=== PATIENT | female | born 1945 | race Caucasian/White ===

== ENCOUNTER → 2017-04-01 | Outpatient (CLI) | payer MEDICARE, OTHER ==
--- NOTE | 2017-04-02 08:55 | MM ---
Reason for exam: screening (asymptomatic). Last mammogram was performed 1 year and 1 month ago. History: Benign excisional biopsy of the right breast, 1994. Took estrogen for 15 years beginning at age 40. Took progesterone for 15 years beginning at age 40. Physical Findings: A clinical breast exam by your physician is recommended on an annual basis and results should be correlated with mammographic findings. MG 3D Screening Mammo W/Cad Bilateral CC and MLO view(s) were taken. Prior study comparison: February 20, 2016, bilateral MG 3d screening mammo w/cad. February 17, 2015, bilateral MG screening mammo w CAD. There are scattered fibroglandular densities. Stable benign calcicications. There is no discrete abnormality. No significant changes when compared with prior studies. ASSESSMENT: Benign, BI-RAD 2 RECOMMENDATION: Routine screening mammogram of both breasts in 1 year.
== END | disposition home or self-care (01) ==
LOC: RADMAMWWP 09:20
PROVIDERS: ATTEND Internal Medicine Geriatric Medicine
DX: Z12.31 Encounter for screening mammogram for malignant neoplasm of breast (principal)
CPT/HCPCS: 77063; G0202

== ENCOUNTER → 2017-08-28 | Outpatient (CLI) | payer MEDICARE, OTHER ==
--- NOTE | 2017-08-28 12:14 | US ---
EXAMINATION TYPE: US thyroid st tissue head/neck DATE OF EXAM: 08/28/2017 COMPARISON: US 2016 CLINICAL HISTORY: E04.1 Thyroid Nodule. Thyroid nodule follow up, patient on thyroid meds GLAND SIZE: Right Lobe: 3.0 x 0.8 x 1.0 cm Overall Parenchyma: heterogenous Left Lobe: 2.8 x 0.7 x 0.9 cm Overall Parenchyma: heterogeneous Isthmus Thickness: 0.2 cm NODULES RIGHT: # of nodules measured on right: 1 1. 0.3 X 0.2 x 0.3 cm hypoechoic cystic nodule at the upper pole with well-defined margins. This no dule is wider than tall and shows no intranodular vascularity. Prior size: 0.3 x 0.2 x 0.3 cm LEFT: # of nodules measured on left: 1 1. 0.5 X 0.3 x 0.5 cm hypoechoic cystic nodule at the lower pole with well-defined margins. This no dule is wider than tall and shows no intranodular vascularity. Prior size: 0.4 x 0.2 x 0.5 cm ISTHMUS: # of nodules measured in the isthmus: 0 Bilateral neck scanned, right neck: wnl, left neck: 2.2 x 0.7 x 1.0cm probable lymph node left latera l neck. IMPRESSION: Similar-appearing bilateral thyroid nodules in comparison to the prior exam of 2016. These are favore d to be benign.
== END | disposition home or self-care (01) ==
LOC: RADUSWWP 10:06
PROVIDERS: ATTEND Otolaryngology
DX: E04.2 Nontoxic multinodular goiter (principal)
CPT/HCPCS: 76536

== ENCOUNTER → 2017-09-19 | Outpatient (CLI) | payer MEDICARE, OTHER ==
[2017-09-19 10:21] LABS: Blood Urea Nitrogen 19 mg/dL (7-17)
--- NOTE | 2017-09-19 12:48 | CT ---
EXAMINATION TYPE: CT soft tissue neck w con DATE OF EXAM: 09/19/2017 COMPARISON: NONE HISTORY: Abn US of neck ultrasound 08/28/2017 CT DLP: 642 mGycm CONTRAST: Patient injected with 100 mL of Omnipaque 300. TECHNIQUE: Axial images at 3 mm thick sections. Reconstructed images in the coronal plane and sagitt al plane are reviewed. FINDINGS: Limited CT sections are obtained the lung apices. Some minimal anterior stranding is in th e anterior left upper lobe. CT neck: The torus tubarius and fossa of Rosenmuller are normal. Lpn Cma spaces are normal. Para nasal sinuses and mastoid air cells are clear. Parotid glands appear normal and symmetrical. Submandibular glands, are normal. Parapharyngeal spac es are normal. No suspicious adenopathy is evident. The hypopharynx appears within normal limits. Vocal cord level appear symmetrical. Thyroid as visualized is normal. Subglottic airway is unremarkable. Osseous structures are normal. IMPRESSIONS: 1. Normal CT soft tissue neck
== END | disposition home or self-care (01) ==
LOC: RADCTMAIN 09:46
PROVIDERS: ATTEND Otolaryngology
DX: R59.0 Localized enlarged lymph nodes (principal)
CPT/HCPCS: 82565; 84520; 70491; 36415; Q9967

== ENCOUNTER → 2018-05-01 | Outpatient (CLI) | payer MEDICARE, BC, OTHER ==
--- NOTE | 2018-05-01 13:29 | XR ---
EXAMINATION TYPE: XR chest 2V DATE OF EXAM: 05/01/2018 COMPARISON: 03/01/2014 TECHNIQUE: PA and lateral views submitted. HISTORY: Shortness of breath FINDINGS: The lungs are clear and there is no pneumothorax, pleural effusion, or focal pneumonia. Coarsened i nterstitium noted. Biapical pleural thickening. Hypertrophic and degenerative change of the spine. IMPRESSION: 1. No acute process. Correlate for chronic interstitial lung disease or pneumonitis.
== END | disposition home or self-care (01) ==
LOC: RADXRMAIN 13:00
PROVIDERS: ATTEND Internal Medicine Geriatric Medicine
DX: R05 Cough (principal)
CPT/HCPCS: 71046

== ENCOUNTER → 2018-05-28 | Outpatient (CLI) | payer MEDICARE, OTHER ==
--- NOTE | 2018-05-29 11:13 | MM ---
Reason for exam: screening (asymptomatic). Last mammogram was performed 1 year and 2 months ago. History: Benign excisional biopsy of the right breast, 1994. Took estrogen for 15 years beginning at age 40. Took progesterone for 15 years beginning at age 40. Physical Findings: A clinical breast exam by your physician is recommended on an annual basis and results should be correlated with mammographic findings. MG 3D Screening Mammo W/Cad Bilateral CC and MLO view(s) were taken. Prior study comparison: April 01, 2017, bilateral MG 3d screening mammo w/cad. February 20, 2016, bilateral MG 3d screening mammo w/cad. There are scattered fibroglandular densities. Benign appearing bilateral calcifications. No suspicious abnormality. Post biopsy change on the right. ASSESSMENT: Benign, BI-RAD 2 RECOMMENDATION: Routine screening mammogram of both breasts in 1 year.
== END | disposition home or self-care (01) ==
LOC: RADMAMWWP 09:17
PROVIDERS: ATTEND Internal Medicine Geriatric Medicine
DX: Z12.31 Encounter for screening mammogram for malignant neoplasm of breast (principal)
CPT/HCPCS: 77063; 77067

== ENCOUNTER → 2018-08-27 | Outpatient (CLI) | payer MEDICARE, OTHER ==
--- NOTE | 2018-08-27 18:31 | US ---
EXAMINATION TYPE: US thyroid st tissue head/neck DATE OF EXAM: 08/27/2018 COMPARISON: US 2018 CLINICAL HISTORY: E04.1 Thyroid Nodule. Thyroid nodules GLAND SIZE: Right Lobe: 3.9 x 1.1 x 1.0 cm Overall Parenchyma: heterogenous Left Lobe: 3.5 x 1.0 x 0.7 cm Overall Parenchyma: heterogeneous Isthmus Thickness: 0.2 cm NODULES RIGHT: # of nodules measured on right: 0 Nodule seen on previous ultrasound not seen on today's exam LEFT: # of nodules measured on left: 1 1. 0.5 X 0.3 x 0.5 cm hypoechoic nodule at the lower pole with well-defined margins. This nodule is wider than tall and shows no intranodular vascularity. Prior size: 0.5 x 0.3 x 0.5 cm ISTHMUS: # of nodules measured in the isthmus: 0 Bilateral neck scanned, no evidence of lymphadenopathy. IMPRESSION: The previously noted 3 mm right thyroid nodule is not well-defined on today's examination. The left-s ided 5 mm thyroid nodule remains stable. Again findings are favored to be benign
== END | disposition home or self-care (01) ==
LOC: RADUSWWP 16:10
PROVIDERS: ATTEND Otolaryngology
DX: E04.1 Nontoxic single thyroid nodule (principal)
CPT/HCPCS: 76536

== ENCOUNTER → 2019-09-09 | Outpatient (CLI) | payer MEDICARE, OTHER ==
--- NOTE | 2019-09-09 14:03 | BD ---
EXAMINATION TYPE: Axial Bone Density DATE OF EXAM: 09/09/2019 COMPARISON: 2013 CLINICAL HISTORY: M 81.0 Height: 60 Weight: 173.2 FRAX RISK QUESTIONS: Alcohol (3 or more units per day): no Family History (Parent hip fracture): no Glucocorticoids (More than 3mos): no (Ex: prednisone, prednisolone, methylprednisolone, dexamethasone, and hydrocortisone). History of Fracture in Adulthood: yes Secondary Osteoporosis: 1. Type 1 Diabetes: no 2. Hyperthyroidism: no 3. Menopause before 45: yes 4. Malnutrition: no 5. Chronic liver disease: no Rheumatoid Arthritis: no Current Tobacco Use: no RISK FACTORS HISTORY OF: Surgery to Spine/Hip(right/left)/Wrist (right/left): no Family History of Osteoporosis: no Active: no Diet low in dairy products/other sources of calcium: no Postmenopausal woman: yes Lost more than 2 inches in height since high school: no MEDICATIONS: Neurontin, Topamax, glimepiride , metformin, Plavix, Lasix, losartan, xanax Thyroid Medications: levothyroxine How Long: about 7 years Additional History: EXAM MEASUREMENTS: Bone mineral densitometry was performed using the Snapshot Interactive System. Bone mineral density as measured about the Lumbar spine is: ----- L1-L4(G/cm2): 1.102 T Score Values are as follows: ----- L2: -0.1 ----- L3: -0.4 ----- L4: -0.7 ----- L1-L4: -0.7 Bone mineral density has: increased 3.2 % since study of: 07.07.2013 Bone mineral density about the R hip (g/cm2): 1.038 Bone mineral density about the L hip (g/cm2): 0.982 T Score values are as follows: -----R Neck: 0.0 -----L Neck: -0.4 -----R Total: 0.0 -----L Total: 0.1 Bone mineral density has: decreased -4.5 % since study of: 07.07.2013 IMPRESSION: Normal (Values between +1 and -1 indicate normal bone mass). Consider repeating this study in 5 year s or sooner if there is some new clinical indication. NOTE: T-SCORE=SD OF THE YOUNG ADULT MEAN.
--- NOTE | 2019-09-10 10:19 | MM ---
Reason for exam: screening (asymptomatic). Last mammogram was performed 1 year and 3 months ago. History: Patient history of other cancer. Benign excisional biopsy of the right breast, 1994. Took estrogen for 15 years beginning at age 40. Took progesterone for 15 years beginning at age 40. Physical Findings: A clinical breast exam by your physician is recommended on an annual basis and results should be correlated with mammographic findings. MG 3D Screening Mammo W/Cad Bilateral CC and MLO view(s) were taken. Prior study comparison: May 28, 2018, bilateral MG 3d screening mammo w/cad. April 01, 2017, bilateral MG 3d screening mammo w/cad. There are scattered fibroglandular densities. Benign appearing bilateral calcifications. No significant changes when compared with prior studies. ASSESSMENT: Benign, BI-RAD 2 RECOMMENDATION: Routine screening mammogram of both breasts in 1 year.
== END | disposition home or self-care (01) ==
LOC: RADMAMWWP 09:54
PROVIDERS: ATTEND Internal Medicine Geriatric Medicine
DX: Z12.31 Encounter for screening mammogram for malignant neoplasm of breast (principal); M81.0 Age-related osteoporosis without current pathological fracture
CPT/HCPCS: 77063; 77067; 77080

== ENCOUNTER 2020-05-31 18:08 | Emergency (ER) | payer MEDICARE, OTHER ==
[2020-05-31] MEDS ORDERED: DIPH,PERTUS(ACELL)TETVAC-LF 0.5 ML VIAL IM ONE (18:29)
[2020-05-31] MEDS ORDERED: LIDOCAINE 1%-EPI 1:100,000 20 ML VIAL SQ STA (18:30)
--- NOTE | 2020-05-31 19:10 | CT ---
EXAMINATION TYPE: CT brain wichoine wo con DATE OF EXAM: 05/31/2020 COMPARISON: None available. HISTORY: posterior head laceration post fall CT DLP: 1359 mGycm Automated exposure control for dose reduction was used. TECHNIQUE: CT scan of the head and cervical spine are performed without contrast. FINDINGS: There is no acute intracranial hemorrhage, mass effect, or midline shift identified. The ventricles and sulci are within normal limits in size. The globes are intact and the visualized sin uses are clear. Occipital scalp hematoma is seen. Cervical spine is visualized in its entirety from C1 through upper thoracic levels and demonstrates s atisfactory alignment without evidence of acute fracture or dislocation. Prevertebral soft tissue ap pears within normal limits. The C1-C2 articulation is unremarkable. Multilevel mild cervical spondy losis. Prior left mandibular ORIF noted. IMPRESSION: 1. There is no acute fracture or dislocation evident in the cervical spine. 2. No acute intracranial hemorrhage, mass effect, or midline shift is seen. 3. Occipital scalp hematoma.
--- NOTE | 2020-05-31 19:15 | ED ---
General Adult HPI - General Chief complaint: Fall Stated complaint: fall Time Seen by Provider: 05/31/20 18:20 Source: patient, RN notes reviewed Mode of arrival: wheelchair Limitations: no limitations - History of Present Illness Initial comments: 74-year-old female with a complicated past medical history including Parkinson's disease presents to the emergency room for a chief complaint of headache injury. Patient was in the kitchen when she lost her balance and fell backwards hitting her head on the trashcan. No loss of consciousness. Patient does take Plavix. Patient not up-to-date on tetanus. Patient denies headache at this time. Denies any other injuries. Denies neck or back pain.Patient has no other complaints at this time including shortness of breath, chest pain, abdominal pain, nausea or vomiting, headache, or visual changes. - Related Data Home Medications Medication Instructions Recorded Confirmed ALPRAZolam [Xanax] 0.5 mg PO HS PRN 08/23/14 06/01/16 Betamethasone Dipropionate 1 applic TOPICAL BID 08/23/14 06/01/16 [Diprolene 0.05% Ointment] Clopidogrel [Plavix] 75 mg PO DAILY 08/23/14 06/01/16 Colesevelam [Welchol] 1,250 mg PO BID 08/23/14 06/01/16 Furosemide [Lasix] 20 mg PO DAILY 08/23/14 06/01/16 Ketoconazole 2% Cream [Nizoral] 1 applic TOPICAL BID PRN 08/23/14 06/01/16 Pramipexole Di-HCl [Mirapex] 0.25 mg PO TID 08/23/14 06/01/16 Triamcinolone Acetonide [Nasacort] 10 gram INHALATION BID PRN 08/23/14 06/01/16 Fexofenadine HCl [Mercedes Allergy] 180 mg PO DAILY 09/08/14 06/01/16 Glimepiride [Amaryl] 1 mg PO DAILY 09/08/14 06/01/16 Levothyroxine Sodium [Synthroid] 50 mcg PO DAILY 09/08/14 06/01/16 Ergocalciferol [Vitamin D2 50,000 unit PO Q7D 09/24/14 06/01/16 (DRISDOL)] Famotidine 20 mg PO HS 09/28/14 06/01/16 Pantoprazole Sodium [Protonix] 40 mg PO DAILY 09/28/14 06/01/16 Calcium Carbonate/Vitamin D3 1 each PO DAILY 05/30/16 06/01/16 [Calcium 600-Vit D3 800 Tab] Carbidopa-Levodopa 25-100 mg 1.5 each PO QID 05/30/16 06/01/16 [Sinemet 25-100] Gabapentin [Neurontin] 100 mg PO DAILY 05/30/16 06/01/16 Gabapentin [Neurontin] 600 mg PO HS 05/30/16 06/01/16 lisinopriL [Zestril] 2.5 mg PO DAILY 05/30/16 06/01/16 sitaGLIPtin [Januvia] 100 mg PO DAILY 05/30/16 06/01/16 Allergies Allergy/AdvReac Type Severity Reaction Status Date / Time adhesive Allergy "RED SKIN, Verified 05/31/20 18:13 ITCHING codeine Allergy Nausea & Verified 05/31/20 18:13 Vomiting diazepam [From Valium] Allergy Rash/Hives Verified 05/31/20 18:13 morphine Allergy "DOES NOT Verified 05/31/20 18:13 TAKE THE PAIN AWAY" oxycodone HCl [From Percodan] Allergy Nausea & Verified 05/31/20 18:13 Vomiting oxycodone terephthalate Allergy Nausea & Verified 05/31/20 18:13 [From Percodan] Vomiting Penicillins Allergy Itching Verified 05/31/20 18:13 Sulfa (Sulfonamide Allergy Nausea & Verified 05/31/20 18:13 Antibiotics) Vomiting steroids Allergy Chest Pain Uncoded 05/31/20 18:13 tape Allergy Itching Uncoded 05/31/20 18:13 Review of Systems ROS Statement: Those systems with pertinent positive or pertinent negative responses have been documented in the HPI. ROS Other: All systems not noted in ROS Statement are negative. Past Medical History Past Medical History: CVA/TIA, Diabetes Mellitus, GERD/Reflux, Hyperlipidemia, Hypertension, Musculoskeletal Disorder, Neurologic Disorder, Osteoarthritis (OA), Skin Disorder, Thyroid Disorder Additional Past Medical History / Comment(s): TIA yrs. ago, Parkinson's, CHRONIC BACK PAIN, PSORIASIS, History of Any Multi-Drug Resistant Organisms: None Reported Past Surgical History: Breast Surgery, Cholecystectomy, Hysterectomy, Orthopedic Surgery Additional Past Surgical History / Comment(s): rotator cuff . arthroscopic rt knee. carpal tunnel britney. A&P REPAIR. BREAST BX. RT SIDE. TMJ SURG. Past Anesthesia/Blood Transfusion Reactions: Motion Sickness Past Psychological History: Anxiety Smoking Status: Never smoker Past Alcohol Use History: None Reported Past Drug Use History: None Reported - Past Family History Father Family Medical History: Cancer Additional Family Medical History / Comment(s): FATHER COLON CANCER General Exam Limitations: no limitations General appearance: alert, in no apparent distress Head exam: Present: normocephalic. Absent: atraumatic (Patient is a 5 cm laceration noted to the right posterior parietal scalp.) Eye exam: Present: normal appearance, PERRL, EOMI. Absent: scleral icterus, conjunctival injection, periorbital swelling ENT exam: Present: normal exam, mucous membranes moist Neck exam: Present: normal inspection, full ROM. Absent: tenderness, meningismus, lymphadenopathy Respiratory exam: Present: normal lung sounds bilaterally. Absent: respiratory distress, wheezes, rales, rhonchi, stridor Cardiovascular Exam: Present: regular rate, normal rhythm, normal heart sounds. Absent: systolic murmur, diastolic murmur, rubs, gallop, clicks GI/Abdominal exam: Present: soft, normal bowel sounds. Absent: distended, tenderness, guarding, rebound, rigid Neurological exam: Present: alert, oriented X3, normal gait, other (GCS 15) Course Vital Signs 05/31/20 18:10 Temperature 97.9 F Pulse Rate 94 Respiratory 20 Rate Blood Pressure 141/78 O2 Sat by Pulse 99 Oximetry Procedures - Laceration Laceration #1 Consent Obtained: verbal consent Indication: laceration Site: scalp Size (cm): 5 Description: linear Depth: simple, single layer Anesthetic Used: lidocaine 1%, with epi Anesthesia Technique: local infiltration Amount (mls): 5 Pre-repair: wound explored, irrigated extensively, deep structures intact Type of Sutures: other (Johann) Number of Sutures: 8 Technique: simple, interrupted Patient Tolerated Procedure: well, no complications Medical Decision Making - Medical Decision Making CT cervical spine shows no acute fracture or dislocation evident. CT brain shows no acute intracranial hemorrhage, mass effect, or midline shift. CT brain and C-spine shows no acute fracture or dislocation evident. No acute intracranial hemorrhage mass effect or midline shift. Patient does have occipital scalp hematoma. 5 centimeter laceration was stapled with 8 johann. Patient will follow up with primary care. I discussed return parameters and care instructions. She will return here for staple removal Disposition Clinical Impression: Head injury, Laceration Disposition: HOME SELF-CARE Condition: Good Instructions (If sedation given, give patient instructions): Head Injury (ED), Staple Care (ED) Additional Instructions: Please keep the area clean and monitor for signs of infection. If these occur return to the emergency room. Otherwise return in 10-14 days for staple removal. Follow-up with your doctor for recheck in one to 2 days. Is patient prescribed a controlled substance at d/c from ED?: No Referrals: Byron Banuelos MD [Primary Care Provider] - 1-2 days Time of Disposition: 19:58
[2020-05-31 20:11] VITALS: BP 121/69; PULSE 91; RESP 16; TEMP 98.5
== END 2020-05-31 20:11 | disposition home or self-care (01) ==
LOC: EC 18:08
DX: S09.90XA Unspecified injury of head, initial encounter (principal); G20 Parkinson's disease; S01.01XA Laceration without foreign body of scalp, initial encounter; E11.9 Type 2 diabetes mellitus without complications; E78.5 Hyperlipidemia, unspecified; K21.9 Gastro-esophageal reflux disease without esophagitis; I10 Essential (primary) hypertension; M19.90 Unspecified osteoarthritis, unspecified site; E07.9 Disorder of thyroid, unspecified; G89.29 Other chronic pain; M54.9 Dorsalgia, unspecified; F41.9 Anxiety disorder, unspecified; Z79.02 Long term (current) use of antithrombotics/antiplatelets; Z79.84 Long term (current) use of oral hypoglycemic drugs; Z79.899 Other long term (current) drug therapy; Z91.048 Other nonmedicinal substance allergy status; Z88.8 Allergy status to other drugs, medicaments and biological substances; Z88.2 Allergy status to sulfonamides; Z88.5 Allergy status to narcotic agent; W01.10XA Fall on same level from slipping, tripping and stumbling with subsequent striking against unspecified object, initial encounter; Y93.89 Activity, other specified; Y92.000 Kitchen of unspecified non-institutional (private) residence as the place of occurrence of the external cause
CPT/HCPCS: 12002; 70450; 72125; 90471; 90715; 99283

== ENCOUNTER → 2020-08-24 | Outpatient (CLI) | payer MEDICARE, OTHER ==
--- NOTE | 2020-08-24 14:39 | US ---
EXAMINATION TYPE: US thyroid st tissue head/neck DATE OF EXAM: 08/24/2020 COMPARISON: 08/27/2018 CLINICAL HISTORY: 75-year-old female D34 Benign neoplasm of thyroid gland. TECHNIQUE: Multiple sonographic images of the thyroid gland are obtained. FINDINGS: GLAND SIZE: Right Lobe: 2.9 x 0.9 x 1.2 cm Overall Parenchyma: heterogenous Left Lobe: 1.9 x 0.7 x 0.7cm cm Overall Parenchyma: heterogeneous Isthmus Thickness: 0.2 cm NODULES RIGHT: # of nodules measured on right: 0 LEFT: # of nodules measured on left: 0 ISTHMUS: # of nodules measured in the isthmus: 0 Bilateral neck scanned, no evidence of lymphadenopathy. Solderer Torch notes: Small ill defined thyroid. Technically difficult study, patient unable to well pos ition herself for test. Patient unable to move chin up for examiner to scan thyroid. IMPRESSION: Small heterogeneous gland may reflect chronic hypothyroidism. Clinically correlate. No discrete nodul e seen. The previous 5 mm left lower pole nodule is no longer identified.
== END | disposition home or self-care (01) ==
LOC: RADUSWWP 13:22
PROVIDERS: ATTEND Internal Medicine Geriatric Medicine
DX: D34 Benign neoplasm of thyroid gland (principal)
CPT/HCPCS: 76536

== ENCOUNTER → 2020-09-23 | Outpatient (CLI) | payer MEDICARE, OTHER ==
--- NOTE | 2020-09-27 13:28 | MM ---
Reason for exam: screening (asymptomatic). Last mammogram was performed 1 year ago. History: Patient history of other cancer. Benign excisional biopsy of the right breast, 1994. Took estrogen for 15 years beginning at age 40. Took progesterone for 15 years beginning at age 40. Physical Findings: A clinical breast exam by your physician is recommended on an annual basis and results should be correlated with mammographic findings. MG 3D Screening Mammo W/Cad Bilateral CC and MLO view(s) were taken. Prior study comparison: September 09, 2019, bilateral MG 3d screening mammo w/cad. May 28, 2018, bilateral MG 3d screening mammo w/cad. There are scattered fibroglandular densities. There is chronic nodularity in the right breast. Benign vascular and oil cyst calcifications. No significant changes when compared with prior studies. ASSESSMENT: Benign, BI-RAD 2 RECOMMENDATION: Routine screening mammogram of both breasts in 1 year.
== END | disposition home or self-care (01) ==
LOC: RADMAMWWP 13:36
PROVIDERS: ATTEND Internal Medicine Geriatric Medicine
DX: Z12.31 Encounter for screening mammogram for malignant neoplasm of breast (principal)
CPT/HCPCS: 77063; 77067

== ENCOUNTER 2020-10-05 11:44 | Emergency (ER) | payer MEDICARE, OTHER ==
--- NOTE | 2020-10-05 12:24 | ED ---
General Adult HPI - General Chief complaint: Fall Stated complaint: Fall Time Seen by Provider: 10/05/20 12:10 Source: patient, family Mode of arrival: ambulatory Limitations: no limitations - History of Present Illness Initial comments: Dictation was produced using [employer] dictation software. please excuse any grammatical, word or spelling errors. This patient was cared for during a federal and state declared state of emergency secondary to Covid 19 Chief Complaint: 75-year-old female presents with head injury History of Present Illness: Patient is a 75-year-old female presents with head injury. Patient was waiting herself she was standing on a scale when she struck misstep off. The scale dipped over and patient fell backwards. She struck her head on the bathtub. Patient presents mild pain there. She has no neck pain. Patient Plavix. Denies any neck pain. No other complaints at this time. The ROS documented in this emergency department record has been reviewed and confirmed by me. Those systems with pertinent positive or negative responses have been documented in the HPI. All other systems are other negative and/or noncontributory. PHYSICAL EXAM: General Impression: Alert and oriented x3, not in acute distress HEENT: 2 x 2 centimeter hematoma over left occiput, extra-ocular movements intact, pupils equal and reactive to light bilaterally, mucous membranes moist. Cardiovascular: Heart regular rate and rhythm Chest: Able to complete full sentences, no retractions, no tachypnea Abdomen: abdomen soft, non-tender, non-distended, no organomegaly Musculoskeletal: Pulses present and equal in all extremities, no peripheral edema Motor: no focal deficits noted Neurological: CN II-XII grossly intact, no focal motor or sensory deficits noted Skin: Intact with no visualized rashes Psych: Normal affect and mood ED course: 75-year-old female presents with head injury. Vital signs upon arrival are within acceptable limits. Computed tomography scan of the head and C-spine was obtained showing no acute processes. Patient be discharged. - Related Data Home Medications Medication Instructions Recorded Confirmed ALPRAZolam [Xanax] 0.5 mg PO HS PRN 08/23/14 06/01/16 Betamethasone Dipropionate 1 applic TOPICAL BID 08/23/14 06/01/16 [Diprolene 0.05% Ointment] Clopidogrel [Plavix] 75 mg PO DAILY 08/23/14 06/01/16 Colesevelam [Welchol] 1,250 mg PO BID 08/23/14 06/01/16 Furosemide [Lasix] 20 mg PO DAILY 08/23/14 06/01/16 Ketoconazole 2% Cream [Nizoral] 1 applic TOPICAL BID PRN 08/23/14 06/01/16 Pramipexole Di-HCl [Mirapex] 0.25 mg PO TID 08/23/14 06/01/16 Triamcinolone Acetonide [Nasacort] 10 gram INHALATION BID PRN 08/23/14 06/01/16 Fexofenadine HCl [Mercedes Allergy] 180 mg PO DAILY 09/08/14 06/01/16 Glimepiride [Amaryl] 1 mg PO DAILY 09/08/14 06/01/16 Levothyroxine Sodium [Synthroid] 50 mcg PO DAILY 09/08/14 06/01/16 Ergocalciferol [Vitamin D2 50,000 unit PO Q7D 09/24/14 06/01/16 (DRISDOL)] Famotidine 20 mg PO HS 09/28/14 06/01/16 Pantoprazole Sodium [Protonix] 40 mg PO DAILY 09/28/14 06/01/16 Calcium Carbonate/Vitamin D3 1 each PO DAILY 05/30/16 06/01/16 [Calcium 600-Vit D3 800 Tab] Carbidopa-Levodopa 25-100 mg 1.5 each PO QID 05/30/16 06/01/16 [Sinemet 25-100] Gabapentin [Neurontin] 100 mg PO DAILY 05/30/16 06/01/16 Gabapentin [Neurontin] 600 mg PO HS 05/30/16 06/01/16 lisinopriL [Zestril] 2.5 mg PO DAILY 05/30/16 06/01/16 sitaGLIPtin [Januvia] 100 mg PO DAILY 05/30/16 06/01/16 Allergies Allergy/AdvReac Type Severity Reaction Status Date / Time adhesive Allergy "RED SKIN, Verified 10/05/20 12:03 ITCHING codeine Allergy Nausea & Verified 10/05/20 12:03 Vomiting diazepam [From Valium] Allergy Rash/Hives Verified 10/05/20 12:03 morphine Allergy "DOES NOT Verified 10/05/20 12:03 TAKE THE PAIN AWAY" oxycodone HCl [From Percodan] Allergy Nausea & Verified 10/05/20 12:03 Vomiting oxycodone terephthalate Allergy Nausea & Verified 10/05/20 12:03 [From Percodan] Vomiting Penicillins Allergy Itching Verified 10/05/20 12:03 Sulfa (Sulfonamide Allergy Nausea & Verified 10/05/20 12:03 Antibiotics) Vomiting steroids Allergy Chest Pain Uncoded 05/31/20 18:13 tape Allergy Itching Uncoded 05/31/20 18:13 Review of Systems ROS Statement: Those systems with pertinent positive or pertinent negative responses have been documented in the HPI. ROS Other: All systems not noted in ROS Statement are negative. Past Medical History Past Medical History: CVA/TIA, Diabetes Mellitus, GERD/Reflux, Hyperlipidemia, Hypertension, Musculoskeletal Disorder, Neurologic Disorder, Osteoarthritis (OA), Skin Disorder, Thyroid Disorder Additional Past Medical History / Comment(s): TIA yrs. ago, Parkinson's, CHRONIC BACK PAIN, PSORIASIS, History of Any Multi-Drug Resistant Organisms: None Reported Past Surgical History: Breast Surgery, Cholecystectomy, Hysterectomy, Orthopedic Surgery Additional Past Surgical History / Comment(s): rotator cuff . arthroscopic rt knee. carpal tunnel britney. A&P REPAIR. BREAST BX. RT SIDE. TMJ SURG. Past Anesthesia/Blood Transfusion Reactions: Motion Sickness Past Psychological History: Anxiety Smoking Status: Never smoker Past Alcohol Use History: None Reported Past Drug Use History: None Reported - Past Family History Father Family Medical History: Cancer Additional Family Medical History / Comment(s): FATHER COLON CANCER General Exam Limitations: no limitations Course Vital Signs 10/05/20 11:59 Temperature 97.7 F Pulse Rate 92 Respiratory 18 Rate Blood Pressure 93/60 O2 Sat by Pulse 95 Oximetry Disposition Clinical Impression: Head contusion Disposition: HOME SELF-CARE Condition: Good Instructions (If sedation given, give patient instructions): Fall Prevention for Older Adults (ED) Is patient prescribed a controlled substance at d/c from ED?: No Referrals: Byron Banuelos MD [Primary Care Provider] - 1-2 days Time of Disposition: 13:09
--- NOTE | 2020-10-05 12:59 | CT ---
EXAMINATION TYPE: CT brain vianca wo con DATE OF EXAM: 10/05/2020 COMPARISON: 05/31/2020 HISTORY: 75-year-old female with pain after Fall and posterior injury CT DLP: 1435.9 mGycm Automated exposure control for dose reduction was used. Technique: Examination of the head was done in axial plane without intravenous contrast. Coronal and sagittal reconstructions performed. CT of the cervical spine was obtained in axial plane without intravenous injection of contrast mater ial. Coronal and sagittal reformatted images were obtained from the axial views for evaluation of f ractures, spinal alignment and canal. FINDINGS: Head: There is no evidence of acute intracranial hemorrhage, acute ischemic changes, mass, mass-effect, or extra-axial fluid collection. There is no effacement of cerebral sulci or basal subarachnoid cister ns. There is no hydrocephalus. There is no midline shift. Lovell-white matter distinction is preserv ed. Old lacunar infarct left basal ganglia The scattered calcifications within the carotid siphons. Left posterior parietal scalp contusion. No underlying calvarial fracture. Some hyperostosis interna compatible with normal variation of the calvarium. Leftward nasal septal deviation. Visualized paranasal sinuses are clear. Mastoid air cells are well p neumatized. Orbits and globes are intact. Cervical spine: No craniocervical junction and probably, predental space widening, or prevertebral soft tissue swelli ng. Degenerative changes of the C1 dens articulation. Scattered hypertrophic facet and uncovertebral joint arthropathy. Unchanged degenerative grade 1 anterolisthesis C2-C3, C3-C4, C4-C5, and C7-T1. Reversal of the normal cervical lordosis. No acute fracture of the cervical spine. Variable mild neuroforaminal narrowing Interstitial changes in the visualized upper lungs appear largely, unchanged from prior exam. Sagittal and coronal reformatted images confirm above findings. COMBINED IMPRESSION: 1. Left posterior scalp contusion. No underlying calvarial fracture or acute intracranial abnormality seen. 2. No acute fracture of the cervical spine. Degenerative grade 1 anterolistheses C2-C3, C3-C4, C4-C5, and C7-T1 remain unchanged.
[2020-10-05 14:14] VITALS: BP 112/65; PULSE 85; RESP 20; TEMP 98.6
== END 2020-10-05 13:20 | disposition home or self-care (01) ==
LOC: EC 11:44
DX: S00.93XA Contusion of unspecified part of head, initial encounter (principal); E11.9 Type 2 diabetes mellitus without complications; E78.5 Hyperlipidemia, unspecified; F41.9 Anxiety disorder, unspecified; G20 Parkinson's disease; I10 Essential (primary) hypertension; K21.9 Gastro-esophageal reflux disease without esophagitis; Z79.02 Long term (current) use of antithrombotics/antiplatelets; Z79.899 Other long term (current) drug therapy; Z79.84 Long term (current) use of oral hypoglycemic drugs; Z91.040 Latex allergy status; Z88.5 Allergy status to narcotic agent; Z88.0 Allergy status to penicillin; Z88.2 Allergy status to sulfonamides; Z91.048 Other nonmedicinal substance allergy status; Z86.73 Personal history of transient ischemic attack (TIA), and cerebral infarction without residual deficits; W22.8XXA Striking against or struck by other objects, initial encounter
CPT/HCPCS: 70450; 72125; 99283

== ENCOUNTER 2020-10-15 10:45 | Emergency (ER) | payer MEDICARE, OTHER ==
[2020-10-15 10:50] VITALS: RESP 18
--- NOTE | 2020-10-15 11:34 | ED ---
Fall HPI - General Chief Complaint: Fall Stated Complaint: fall, facial injury Time Seen by Provider: 10/15/20 10:53 Source: patient, family Mode of arrival: wheelchair - History of Present Illness Initial Comments: 75-year-old female with history of Parkinson's, chronic back pain and frequent falls presents to emergency departments chief complaint of a fall. Patient reports she was walking to the laundry room carrying a basket when she lost her footing and went down to the ground with face first. Patient reports now she developed ecchymosis on her forehead in the left eye. Patient is currently on Plavix. Patient denies any loss consciousness at the time of incident. She denies any dizziness, lightheadedness, blurry vision, one-sided weakness or paresthesias. She does report a headache near the site of ecchymosis. She denies any neck pain. - Related Data Home Medications Medication Instructions Recorded Confirmed Clopidogrel [Plavix] 75 mg PO DAILY 08/23/14 10/15/20 Furosemide [Lasix] 20 mg PO DAILY 08/23/14 10/15/20 Glimepiride [Amaryl] 2 mg PO BID 09/08/14 10/15/20 Levothyroxine Sodium [Synthroid] 50 mcg PO HS 09/08/14 10/15/20 Famotidine 20 mg PO HS 09/28/14 10/15/20 Carbidopa-Levodopa 25-100 mg 1.5 tab PO TID 05/30/16 10/15/20 [Sinemet 25-100] Acetaminophen/Caffeine [Excedrin 2 tab PO Q12H PRN 10/15/20 10/15/20 Tension Headache Cplt] Celecoxib [CeleBREX] 200 mg PO HS 10/15/20 10/15/20 Cyclobenzaprine [Flexeril] 10 mg PO HS 10/15/20 10/15/20 Dulaglutide [Trulicity] 1.5 mg SQ WE 10/15/20 10/15/20 Lidocaine 5% Patch [Lidoderm] 1 patch TOPICAL DAILY PRN 10/15/20 10/15/20 Mirabegron [Myrbetriq] 50 mg PO DAILY@1200 10/15/20 10/15/20 Olmesartan [Benicar] 10 mg PO DAILY 10/15/20 10/15/20 Pregabalin [Lyrica] 100 mg PO BID@1200,2100 10/15/20 10/15/20 Rosuvastatin [Crestor] 10 mg PO DAILY 10/15/20 10/15/20 metFORMIN HCL [Glucophage] 500 mg PO BID 10/15/20 10/15/20 predniSONE 2.5 mg PO DAILY 10/15/20 10/15/20 traZODone HCL 100 mg PO HS 10/15/20 10/15/20 Allergies Allergy/AdvReac Type Severity Reaction Status Date / Time adhesive Allergy "RED SKIN, Verified 10/15/20 12:05 ITCHING codeine Allergy Nausea & Verified 10/15/20 12:05 Vomiting diazepam [From Valium] Allergy Rash/Hives Verified 10/15/20 12:05 morphine Allergy "DOES NOT Verified 10/15/20 12:05 TAKE THE PAIN AWAY" oxycodone HCl [From Percodan] Allergy Nausea & Verified 10/15/20 12:05 Vomiting oxycodone terephthalate Allergy Nausea & Verified 10/15/20 12:05 [From Percodan] Vomiting Penicillins Allergy Itching Verified 10/15/20 12:05 Sulfa (Sulfonamide Allergy Nausea & Verified 10/15/20 12:05 Antibiotics) Vomiting steroids Allergy Chest Pain Uncoded 05/31/20 18:13 tape Allergy Itching Uncoded 05/31/20 18:13 Review of Systems ROS Statement: Those systems with pertinent positive or pertinent negative responses have been documented in the HPI. ROS Other: All systems not noted in ROS Statement are negative. Past Medical History Past Medical History: CVA/TIA, Diabetes Mellitus, GERD/Reflux, Hyperlipidemia, Hypertension, Musculoskeletal Disorder, Neurologic Disorder, Osteoarthritis (OA), Skin Disorder, Thyroid Disorder Additional Past Medical History / Comment(s): TIA yrs. ago, Parkinson's, CHRONIC BACK PAIN, PSORIASIS, History of Any Multi-Drug Resistant Organisms: None Reported Past Surgical History: Breast Surgery, Cholecystectomy, Hysterectomy, Orthopedic Surgery Additional Past Surgical History / Comment(s): rotator cuff . arthroscopic rt knee. carpal tunnel britney. A&P REPAIR. BREAST BX. RT SIDE. TMJ SURG. Past Anesthesia/Blood Transfusion Reactions: Motion Sickness Past Psychological History: Anxiety Smoking Status: Never smoker Past Alcohol Use History: None Reported Past Drug Use History: None Reported - Past Family History Father Family Medical History: Cancer Additional Family Medical History / Comment(s): FATHER COLON CANCER General Exam Limitations: no limitations General appearance: alert, in no apparent distress Head exam: Present: normocephalic, normal inspection. Absent: atraumatic (There is bruising on the left side of the forehead along some periorbital ecchymosis), other (Negative Kamara sign, raccoon eyes, hemotympanum.) Eye exam: Present: normal appearance, PERRL, EOMI Pupils: Present: normal accommodation ENT exam: Present: normal exam, normal oropharynx (No signs of septal hematoma), mucous membranes moist, TM's normal bilaterally, normal external ear exam Neck exam: Present: normal inspection, full ROM. Absent: tenderness Respiratory exam: Present: normal lung sounds bilaterally. Absent: respiratory distress Cardiovascular Exam: Present: regular rate, normal rhythm, normal heart sounds Extremities exam: Present: normal inspection, full ROM, normal capillary refill. Absent: tenderness Back exam: Present: normal inspection, full ROM. Absent: tenderness, CVA tenderness (R), CVA tenderness (L) Neurological exam: Present: alert, oriented X3, normal gait Psychiatric exam: Present: normal affect, normal mood Skin exam: Present: warm, dry, intact, normal color Course Vital Signs 10/15/20 10:47 Temperature 98 F Pulse Rate 91 Respiratory 18 Rate Blood Pressure 114/74 O2 Sat by Pulse 96 Oximetry Medical Decision Making - Medical Decision Making 75-year-old female presents to emergency Department with a chief complaint of a fall. On physical examination, she has left periorbital ecchymosis along with a hematoma on the left-sided forehead. Patient is otherwise neurovascularly intact. She does have history of Parkinson's and frequent falls. CT of the brain and C-spine shows no acute fractures, dislocations, intracranial hemorrhage. Facial CT reveals a minimally displaced nasal bone fracture. Patient vised to follow-up with an ENT specialist. She was offered analgesia, she declined. Case discussed with Dr. Youssef. Disposition Clinical Impression: Fall, Head injury, Nasal bone fracture Disposition: HOME SELF-CARE Condition: Stable Instructions (If sedation given, give patient instructions): Nasal Fracture (ED), Fall Prevention (ED) Additional Instructions: Follow-up with an ENT specialist. Return to emergency department if symptoms worsen. Is patient prescribed a controlled substance at d/c from ED?: No Referrals: Byron Banuelos MD [Primary Care Provider] - 1-2 days Time of Disposition: 12:16
--- NOTE | 2020-10-15 12:00 | CT ---
EXAMINATION TYPE: CT brain cspine wo con DATE OF EXAM: 10/15/2020 COMPARISON: CT 10/05/2020 HISTORY: perinasal and periorbital contusion post fall CT DLP: 1147.2 mGycm Automated exposure control for dose reduction was used. TECHNIQUE: CT scan of the head and cervical spine are performed without contrast. FINDINGS: There is no acute intracranial hemorrhage, mass effect, or midline shift identified. The ventricles and sulci are within normal limits in size. The globes are intact and the visualized sin uses are clear. There are cerebral vascular calcifications. Frontal cephalohematoma present within th e scalp is a new finding, the posterior occipital scalp region also shows a focus of increased attenu ation likely due to cephalohematoma which was seen on prior exam. Periventricular white matter shows patchy low attenuation, there is cortical atrophy. Calvarium shows no fracture Cervical spine is visualized in its entirety from C1 through upper thoracic levels and demonstrates near-anatomic alignment, stable without evidence of acute fracture or dislocation. Prevertebral soft tissue appears within normal limits. The C1-C2 articulation is unremarkable. Arthropathy change pre sent at the temporomandibular joints. Stable degenerative changes. IMPRESSION: 1. There is no acute fracture or dislocation evident in the cervical spine. 2. No acute intracranial hemorrhage, mass effect, or midline shift is seen.
--- NOTE | 2020-10-15 12:10 | CT ---
EXAMINATION TYPE: CT facial bones wo con DATE OF EXAM: 10/15/2020 COMPARISON: CT brain same date HISTORY: perinasal and periorbital contusion post fall CT DLP: 820.6 mGycm Automated exposure control for dose reduction was used. TECHNIQUE: CT scan of the sinuses is performed without contrast, axial images are obtained, coronal r eformatted images are also reviewed. FINDINGS: Soft tissue swelling noted to the nose, there is a fracture to the nasal bone on the right with some minimal displacement. Lucency is present within the soft tissues, frontal cephalohematoma i s again noted. Orbits are intact. No air-fluid levels in the paranasal sinuses to suggest acute hemor rhage. Focal sclerotic focus in the frontal ethmoidal region likely represents osteoma measuring 6 mm . There is no erosion of the scutum. Auditory ossicles show symmetric appearance. No thickening of th e tympanic membranes. Temporomandibular joints show marked arthropathy, there is a focal lucency pres ent at the articulation of the mandibular condyle in the left with the base of the skull at the level of the anterior aspect of the inferior margin of the middle cranial fossa which appears chronic. IMPRESSION: Minimally displaced distal nasal bone fracture, soft tissue injury. Temporal mandibular j oint arthropathy change as described with lucency at the joint potentially communicating with the mid dle cranial fossa.
[2020-10-15 12:55] VITALS: BP 122/71; PULSE 71; TEMP 98.2
== END 2020-10-15 12:55 | disposition home or self-care (01) ==
LOC: EC 10:45
DX: S02.2XXA Fracture of nasal bones, initial encounter for closed fracture (principal); S09.90XA Unspecified injury of head, initial encounter; M19.90 Unspecified osteoarthritis, unspecified site; K21.9 Gastro-esophageal reflux disease without esophagitis; I10 Essential (primary) hypertension; G20 Parkinson's disease; F41.9 Anxiety disorder, unspecified; E07.9 Disorder of thyroid, unspecified; E78.5 Hyperlipidemia, unspecified; E11.9 Type 2 diabetes mellitus without complications; Z79.02 Long term (current) use of antithrombotics/antiplatelets; Z79.1 Long term (current) use of non-steroidal anti-inflammatories (NSAID); Z79.52 Long term (current) use of systemic steroids; Z79.84 Long term (current) use of oral hypoglycemic drugs; Z79.899 Other long term (current) drug therapy; Z86.73 Personal history of transient ischemic attack (TIA), and cerebral infarction without residual deficits; Z88.0 Allergy status to penicillin; Z88.2 Allergy status to sulfonamides; Z88.5 Allergy status to narcotic agent; W19.XXXA Unspecified fall, initial encounter; Y93.01 Activity, walking, marching and hiking
CPT/HCPCS: 70450; 70486; 72125

== ENCOUNTER → 2022-01-16 | Outpatient (CLI) | payer MEDICARE, OTHER ==
--- NOTE | 2022-01-17 09:09 | MM ---
Reason for Exam: Screening (asymptomatic). Last mammogram was performed 1 year(s) and 4 month(s) ago. Patient History: Menarche at age 13. First Full-Term at age 22. Left ovary removed at age 38. Right ovary removed at age 34. Hysterectomy at age 34. Other cancer. Estrogen for 15 years from age 40 until age 55. Progesterone for 15 years from age 40 until age 55. 1994, Benign Excisional Biopsy on the right side. Risk Values: Lisbeth 5 year model risk: 1.9%. NCI Lifetime model risk: 3.8%. Prior Study Comparison: 05/28/2018 Bilateral Screening Mammogram, [facility]. 09/09/2019 Bilateral Screening Mammogram, [facility]. 09/23/2020 Bilateral Screening Mammogram, [facility]. Tissue Density: There are scattered fibroglandular densities. Findings: Analyzed By CAD. There is no suspicious group of microcalcifications or new suspicious mass in either breast. Benign calcifications noted. Overall Assessment: Benign, BI-RAD 2 Management: Screening Mammogram of both breasts in 1 year. A clinical breast exam by your physician is recommended on an annual basis and results should be correlated with mammographic findings. Electronically signed and approved by: Chris Paul M.D. Radiologis
== END | disposition home or self-care (01) ==
LOC: RADMAMWWP 06:46
PROVIDERS: ATTEND Internal Medicine Geriatric Medicine
DX: Z12.31 Encounter for screening mammogram for malignant neoplasm of breast (principal)
CPT/HCPCS: 77063; 77067

== ENCOUNTER 2022-02-13 14:28 | Emergency (ER) | payer MEDICARE, OTHER ==
[2022-02-13 14:35] VITALS: TEMP 98.6
[2022-02-13] MEDS ORDERED: SODIUM CHLORIDE 0.9% 1,000 ML IV STA (14:50)
[2022-02-13 15:34] LABS: Basophils # (A) 0.1 k/uL (0-0.2); Basophils % (A) 1 %; Eosinophils # (A) 0.2 k/uL (0-0.7); Eosinophils % (A) 2 %; HCT 40.4 % (34.0-46.0); Lymphocytes % (A) 23 %; MCH 28.6 pg (25.0-35.0); MCHC 32.3 g/dL (31.0-37.0); MCV 88.6 fL (80.0-100.0); Mean Platelet Volume 7.5; Monocytes # (A) 0.5 k/uL (0-1.0); Monocytes % (A) 6 %; Neutrophils # (A) 5.8 k/uL (1.3-7.7); Neutrophils % (A) 67 %; Platelet Count 254 k/uL (150-450); RBC 4.56 m/uL (3.80-5.40); RDW 13.8 % (11.5-15.5); WBC 8.7 k/uL (3.8-10.6)
[2022-02-13 15:45] LABS: ALT 24 U/L (4-34); AST 37 U/L (14-36); African American GFR (CKD) >90 (>60 ml/min/1.73 sqM); Albumin 4.4 g/dL (3.5-5.0); Alkaline Phosphatase 70 U/L (38-126); Anion Gap 9 mmol/L; Blood Urea Nitrogen 24 mg/dL (7-17); Calcium 9.7 mg/dL (8.4-10.2); Carbon Dioxide 26 mmol/L (22-30); Chloride 102 mmol/L (98-107); Glucose 121 mg/dL (74-99); Magnesium 1.9 mg/dL (1.6-2.3); Non-African American GFR(CKD) 85 (>60 ml/min/1.73 sqM); Phosphorus 3.5 mg/dL (2.5-4.5); Potassium 3.8 mmol/L (3.5-5.1); Sodium 137 mmol/L (137-145); Total Bilirubin 0.9 mg/dL (0.2-1.3); Total Protein 7.4 g/dL (6.3-8.2)
--- NOTE | 2022-02-13 15:51 | XR ---
EXAMINATION TYPE: XR chest 2V DATE OF EXAM: 02/13/2022 COMPARISON: Chest x-ray 05/01/2018 HISTORY: Weakness, pain TECHNIQUE: Frontal and lateral views of the chest are obtained. FINDINGS: Interstitium is increased. Lung volumes are low. No evident pneumothorax or pleural effusi on. Heart and mediastinal silhouette likely stable accounting for patient rotation. Arthropathy again noted within the shoulders. There is thoracic spondylosis. IMPRESSION: There is likely underlying chronic interstitial lung disease.
[2022-02-13 15:58] LABS: Partial Thromboplastin Time 22.6 sec (22.0-30.0); Prothrombin Time 10.7 sec (9.0-12.0)
[2022-02-13 16:50] LABS: Appearance,Urine Clear (Clear); Bacteria,Urine Occasional /hpf; Bilirubin,Urine Negative (Negative); Blood,Urine Negative (Negative); Color,Urine Yellow; Glucose,Urine (UA) 4+ (Negative); Hyaline Casts,Urine 1 /lpf (0-2); Ketones,Urine 1+ (Negative); Leukocyte Esterase,Urine Large (Negative); Mucus,Urine Rare /hpf; Nitrite,Urine Negative (Negative); PH, Urine 5.5 (5.0-8.0); Protein,Urine Trace (Negative); RBC,Urine 19 /hpf (0-5); Specific Gravity,Urine 1.038 (1.001-1.035); Squamous Epithelial Cell,Urine 2 /hpf (0-4); Urobilinogen,Urine <2.0 mg/dL (<2.0); WBC,Urine 24 /hpf (0-5)
[2022-02-13 18:46] VITALS: BP 101/68; PULSE 90; RESP 16
--- NOTE | 2022-02-13 19:01 | ED ---
Weakness HPI - General Chief complaint: Weakness Stated complaint: Weakness Time Seen by Provider: 02/13/22 14:37 Source: patient, family Mode of arrival: ambulatory Limitations: no limitations - History of Present Illness Initial comments: Patient complains of weakness and malaise. Her symptoms are gone worse for 48 hours. She has no focal deficits. She has no paresthesias. She has no lightheadedness. She has no dizziness. She has no nausea or vomiting. He has taken no medicine to help with her symptoms. She denies any sick contacts. She denies any recent travel. - Related Data Home Medications Medication Instructions Recorded Confirmed Clopidogrel [Plavix] 75 mg PO DIRECTED 08/23/14 02/13/22 Furosemide [Lasix] 20 mg PO DAILY@30 08/23/14 02/13/22 Levothyroxine Sodium [Synthroid] 50 mcg PO HS 09/08/14 02/13/22 Famotidine 20 mg PO HS 09/28/14 02/13/22 Acetaminophen/Caffeine [Excedrin 2 tab PO Q12H PRN 10/15/20 02/13/22 Tension Headache Cplt] Lidocaine 5% Patch [Lidoderm] 1 patch TOPICAL DAILY PRN 10/15/20 02/13/22 Rosuvastatin [Crestor] 10 mg PO DAILY 10/15/20 02/13/22 metFORMIN HCL [Glucophage] 500 mg PO BID@0630,1830 10/15/20 02/13/22 predniSONE 2.5 mg PO DAILY@0630 10/15/20 02/13/22 Betamethasone Dipropionate 1 applic TOPICAL DIRECTED PRN 02/13/22 02/13/22 [Diprolene AF 0.05% Cream] Calcium Carbonate/Vitamin D3 1 tab PO DAILY 02/13/22 02/13/22 [Calcium 500 mg-Vit D3 5 mcg (200 Unit)] Celecoxib [CeleBREX] 100 mg PO BID@0630,1830 02/13/22 02/13/22 Dulaglutide [Trulicity] 3 mg SQ WE@62902/13/22 02/13/22 Empagliflozin [Jardiance] 25 mg PO DAILY 02/13/22 02/13/22 Fexofenadine HCl [Mercedes Allergy] 180 mg PO DAILY 02/13/22 02/13/22 Ketoconazole 2% Cream [Nizoral 2%] 1 applic TOPICAL DAILY PRN 02/13/22 02/13/22 Ketoconazole 2% Shampoo [Nizoral] 1 applic TOPICAL DIRECTED PRN 02/13/22 02/13/22 Olmesartan Medoxomil 10 mg PO DAILY 02/13/22 02/13/22 Triamcinolone Acetonide [Nasacort] 1 spray EA NOSTRIL BID PRN 02/13/22 02/13/22 Previous Rx's Medication Instructions Recorded Cephalexin [Keflex] 500 mg PO Q6HR 10 Days #40 cap 02/13/22 Allergies Allergy/AdvReac Type Severity Reaction Status Date / Time adhesive Allergy "RED SKIN, Verified 02/13/22 18:10 ITCHING codeine Allergy Nausea & Verified 02/13/22 18:10 Vomiting diazepam [From Valium] Allergy Rash/Hives Verified 02/13/22 18:10 morphine Allergy "DOES NOT Verified 02/13/22 18:10 TAKE THE PAIN AWAY" oxycodone HCl [From Percodan] Allergy Nausea & Verified 02/13/22 18:10 Vomiting oxycodone terephthalate Allergy Nausea & Verified 02/13/22 18:10 [From Percodan] Vomiting Penicillins Allergy Unknown Verified 02/13/22 18:10 Childhood Sulfa (Sulfonamide Allergy Nausea & Verified 02/13/22 18:10 Antibiotics) Vomiting steroids Allergy Chest Pain Uncoded 02/13/22 14:34 tape Allergy Itching Uncoded 02/13/22 14:34 Review of Systems ROS Statement: Those systems with pertinent positive or pertinent negative responses have been documented in the HPI. ROS Other: All systems not noted in ROS Statement are negative. Past Medical History Past Medical History: CVA/TIA, Diabetes Mellitus, GERD/Reflux, Hyperlipidemia, Hypertension, Musculoskeletal Disorder, Neurologic Disorder, Osteoarthritis (OA), Skin Disorder, Thyroid Disorder Additional Past Medical History / Comment(s): TIA yrs. ago, Parkinson's, CHRONIC BACK PAIN, PSORIASIS, History of Any Multi-Drug Resistant Organisms: None Reported Past Surgical History: Breast Surgery, Cholecystectomy, Hysterectomy, Orthopedic Surgery Additional Past Surgical History / Comment(s): rotator cuff . arthroscopic rt knee. carpal tunnel britney. A&P REPAIR. BREAST BX. RT SIDE. TMJ SURG. Past Anesthesia/Blood Transfusion Reactions: Motion Sickness Past Psychological History: Anxiety Smoking Status: Never smoker Past Alcohol Use History: None Reported Past Drug Use History: None Reported - Past Family History Father Family Medical History: Cancer Additional Family Medical History / Comment(s): FATHER COLON CANCER General Exam Limitations: no limitations General appearance: alert, in no apparent distress Head exam: Present: atraumatic, normocephalic, normal inspection Eye exam: Present: normal appearance, PERRL, EOMI. Absent: scleral icterus, co njunctival injection, periorbital swelling ENT exam: Present: normal exam, mucous membranes moist Neck exam: Present: normal inspection. Absent: tenderness, meningismus, lymphadenopathy Respiratory exam: Present: normal lung sounds bilaterally. Absent: respiratory distress, wheezes, rales, rhonchi, stridor Cardiovascular Exam: Present: regular rate, normal rhythm, normal heart sounds. Absent: systolic murmur, diastolic murmur, rubs, gallop, clicks GI/Abdominal exam: Present: soft, normal bowel sounds. Absent: distended, tenderness, guarding, rebound, rigid Extremities exam: Present: normal inspection, full ROM, normal capillary refill. Absent: tenderness, pedal edema, joint swelling, calf tenderness Back exam: Present: normal inspection Neurological exam: Present: alert, oriented X3, CN II-XII intact Psychiatric exam: Present: normal affect, normal mood Skin exam: Present: warm, dry, intact, normal color. Absent: rash Course Vital Signs 02/13/22 02/13/22 14:31 18:45 Temperature 98.6 F Pulse Rate 100 90 Respiratory 20 16 Rate Blood Pressure 101/61 101/68 O2 Sat by Pulse 95 96 Oximetry EKG Findings - EKG Comments: EKG Findings:: twelve-lead EKG shows ventricular rate 86 bpm, normal PA interval and QRS complexes, no ST elevation or depression, interpreted by me as normal sinus rhythm. Medical Decision Making - Medical Decision Making Patient presents with weakness. She has UTI. I gave her IV fluids and antibiotics. Patient is feeling better. She would like to go home. She is stable for discharge. - Lab Data Result diagrams: 02/13/22 14:50 02/13/22 14:50 Lab Results 02/13/22 02/13/22 02/13/22 Range/Units 14:50 14:50 14:50 WBC 8.7 (3.8-10.6) k/uL RBC 4.56 (3.80-5.40) m/uL Hgb 13.0 (11.4-16.0) gm/dL Hct 40.4 (34.0-46.0) % MCV 88.6 (80.0-100.0) fL MCH 28.6 (25.0-35.0) pg MCHC 32.3 (31.0-37.0) g/dL RDW 13.8 (11.5-15.5) % Plt Count 254 (150-450) k/uL MPV 7.5 Neutrophils % 67 % Lymphocytes % 23 % Monocytes % 6 % Eosinophils % 2 % Basophils % 1 % Neutrophils # 5.8 (1.3-7.7) k/uL Lymphocytes # 2.0 (1.0-4.8) k/uL Monocytes # 0.5 (0-1.0) k/uL Eosinophils # 0.2 (0-0.7) k/uL Basophils # 0.1 (0-0.2) k/uL PT 10.7 (9.0-12.0) sec INR 1.0 (<1.2) APTT 22.6 (22.0-30.0) sec Sodium 137 (137-145) mmol/L Potassium 3.8 (3.5-5.1) mmol/L Chloride 102 (98-107) mmol/L Carbon Dioxide 26 (22-30) mmol/L Anion Gap 9 mmol/L BUN 24 H (7-17) mg/dL Creatinine 0.68 (0.52-1.04) mg/dL Est GFR (CKD-EPI)AfAm >90 (>60 ml/min/1.73 sqM) Est GFR (CKD-EPI)NonAf 85 (>60 ml/min/1.73 sqM) Glucose 121 H (74-99) mg/dL Plasma Lactic Acid Hammad (0.7-2.0) mmol/L Calcium 9.7 (8.4-10.2) mg/dL Phosphorus 3.5 (2.5-4.5) mg/dL Magnesium 1.9 (1.6-2.3) mg/dL Total Bilirubin 0.9 (0.2-1.3) mg/dL AST 37 H (14-36) U/L ALT 24 (4-34) U/L Alkaline Phosphatase 70 (38-126) U/L Troponin I (0.000-0.034) ng/mL NT-Pro-B Natriuret Pep pg/mL Total Protein 7.4 (6.3-8.2) g/dL Albumin 4.4 (3.5-5.0) g/dL TSH 1.880 (0.465-4.680) mIU/L Urine Color Urine Appearance (Clear) Urine pH (5.0-8.0) Ur Specific [place] (1.001-1.035) Urine Protein (Negative) Urine Glucose (UA) (Negative) Urine Ketones (Negative) Urine Blood (Negative) Urine Nitrite (Negative) Urine Bilirubin (Negative) Urine Urobilinogen (<2.0) mg/dL Ur Leukocyte Esterase (Negative) Urine RBC (0-5) /hpf Urine WBC (0-5) /hpf Ur Squamous Epith Cells (0-4) /hpf Urine Bacteria (None) /hpf Hyaline Casts (0-2) /lpf Urine Mucus (None) /hpf 02/13/22 02/13/22 02/13/22 Range/Units 14:50 14:50 14:50 WBC (3.8-10.6) k/uL RBC (3.80-5.40) m/uL Hgb (11.4-16.0) gm/dL Hct (34.0-46.0) % MCV (80.0-100.0) fL MCH (25.0-35.0) pg MCHC (31.0-37.0) g/dL RDW (11.5-15.5) % Plt Count (150-450) k/uL MPV Neutrophils % % Lymphocytes % % Monocytes % % Eosinophils % % Basophils % % Neutrophils # (1.3-7.7) k/uL Lymphocytes # (1.0-4.8) k/uL Monocytes # (0-1.0) k/uL Eosinophils # (0-0.7) k/uL Basophils # (0-0.2) k/uL PT (9.0-12.0) sec INR (<1.2) APTT (22.0-30.0) sec Sodium (137-145) mmol/L Potassium (3.5-5.1) mmol/L Chloride (98-107) mmol/L Carbon Dioxide (22-30) mmol/L Anion Gap mmol/L BUN (7-17) mg/dL Creatinine (0.52-1.04) mg/dL Est GFR (CKD-EPI)AfAm (>60 ml/min/1.73 sqM) Est GFR (CKD-EPI)NonAf (>60 ml/min/1.73 sqM) Glucose (74-99) mg/dL Plasma Lactic Acid Hammad 1.1 (0.7-2.0) mmol/L Calcium (8.4-10.2) mg/dL Phosphorus (2.5-4.5) mg/dL Magnesium (1.6-2.3) mg/dL Total Bilirubin (0.2-1.3) mg/dL AST (14-36) U/L ALT (4-34) U/L Alkaline Phosphatase (38-126) U/L Troponin I <0.012 (0.000-0.034) ng/mL NT-Pro-B Natriuret Pep 35 pg/mL Total Protein (6.3-8.2) g/dL Albumin (3.5-5.0) g/dL TSH (0.465-4.680) mIU/L Urine Color Urine Appearance (Clear) Urine pH (5.0-8.0) Ur Specific [place] (1.001-1.035) Urine Protein (Negative) Urine Glucose (UA) (Negative) Urine Ketones (Negative) Urine Blood (Negative) Urine Nitrite (Negative) Urine Bilirubin (Negative) Urine Urobilinogen (<2.0) mg/dL Ur Leukocyte Esterase (Negative) Urine RBC (0-5) /hpf Urine WBC (0-5) /hpf Ur Squamous Epith Cells (0-4) /hpf Urine Bacteria (None) /hpf Hyaline Casts (0-2) /lpf Urine Mucus (None) /hpf 02/13/22 Range/Units 16:17 WBC (3.8-10.6) k/uL RBC (3.80-5.40) m/uL Hgb (11.4-16.0) gm/dL Hct (34.0-46.0) % MCV (80.0-100.0) fL MCH (25.0-35.0) pg MCHC (31.0-37.0) g/dL RDW (11.5-15.5) % Plt Count (150-450) k/uL MPV Neutrophils % % Lymphocytes % % Monocytes % % Eosinophils % % Basophils % % Neutrophils # (1.3-7.7) k/uL Lymphocytes # (1.0-4.8) k/uL Monocytes # (0-1.0) k/uL Eosinophils # (0-0.7) k/uL Basophils # (0-0.2) k/uL PT (9.0-12.0) sec INR (<1.2) APTT (22.0-30.0) sec Sodium (137-145) mmol/L Potassium (3.5-5.1) mmol/L Chloride (98-107) mmol/L Carbon Dioxide (22-30) mmol/L Anion Gap mmol/L BUN (7-17) mg/dL Creatinine (0.52-1.04) mg/dL Est GFR (CKD-EPI)AfAm (>60 ml/min/1.73 sqM) Est GFR (CKD-EPI)NonAf (>60 ml/min/1.73 sqM) Glucose (74-99) mg/dL Plasma Lactic Acid Hammad (0.7-2.0) mmol/L Calcium (8.4-10.2) mg/dL Phosphorus (2.5-4.5) mg/dL Magnesium (1.6-2.3) mg/dL Total Bilirubin (0.2-1.3) mg/dL AST (14-36) U/L ALT (4-34) U/L Alkaline Phosphatase (38-126) U/L Troponin I (0.000-0.034) ng/mL NT-Pro-B Natriuret Pep pg/mL Total Protein (6.3-8.2) g/dL Albumin (3.5-5.0) g/dL TSH (0.465-4.680) mIU/L Urine Color Yellow Urine Appearance Clear (Clear) Urine pH 5.5 (5.0-8.0) Ur Specific [place] 1.038 H (1.001-1.035) Urine Protein Trace H (Negative) Urine Glucose (UA) 4+ H (Negative) Urine Ketones 1+ H (Negative) Urine Blood Negative (Negative) Urine Nitrite Negative (Negative) Urine Bilirubin Negative (Negative) Urine Urobilinogen <2.0 (<2.0) mg/dL Ur Leukocyte Esterase Large H (Negative) Urine RBC 19 H (0-5) /hpf Urine WBC 24 H (0-5) /hpf Ur Squamous Epith Cells 2 (0-4) /hpf Urine Bacteria Occasional H (None) /hpf Hyaline Casts 1 (0-2) /lpf Urine Mucus Rare H (None) /hpf Disposition Clinical Impression: UTI (urinary tract infection) Disposition: HOME SELF-CARE Condition: Good Instructions (If sedation given, give patient instructions): Urinary Tract Infection in Older Adults (ED) Prescriptions: Cephalexin [Keflex] 500 mg PO Q6HR 10 Days #40 cap Is patient prescribed a controlled substance at d/c from ED?: No Referrals: Byron Banuelos MD [Primary Care Provider] - 1-2 days
== END 2022-02-13 21:00 | disposition home or self-care (01) ==
LOC: EC 14:28
DX: N39.0 Urinary tract infection, site not specified (principal); R53.1 Weakness; E11.9 Type 2 diabetes mellitus without complications; I10 Essential (primary) hypertension; E78.5 Hyperlipidemia, unspecified; K21.9 Gastro-esophageal reflux disease without esophagitis; M19.90 Unspecified osteoarthritis, unspecified site; E07.9 Disorder of thyroid, unspecified; Z86.73 Personal history of transient ischemic attack (TIA), and cerebral infarction without residual deficits; Z88.0 Allergy status to penicillin; Z88.8 Allergy status to other drugs, medicaments and biological substances; Z91.09 Other allergy status, other than to drugs and biological substances; Z88.2 Allergy status to sulfonamides; Z88.5 Allergy status to narcotic agent; Z79.899 Other long term (current) drug therapy; Z79.84 Long term (current) use of oral hypoglycemic drugs; Z79.890 Hormone replacement therapy; Z79.02 Long term (current) use of antithrombotics/antiplatelets
CPT/HCPCS: 36415; 93005; 83880; 80053; 83605; 83735; 84100; 84443; 84484; 85025; 85610; 85730; 81001; 87040; 87086; 71046; 99285; 96365; 96361; J0696

== ENCOUNTER → 2023-02-13 | Outpatient (CLI) | payer MEDICARE, OTHER ==
--- NOTE | 2023-02-13 17:27 | BD ---
EXAMINATION TYPE: Axial Bone Density DATE OF EXAM: 02/13/2023 CLINICAL HISTORY: 77 years old Female. ICD-10 CODE: M81.0 OSTEOPOROSIS Height: 58 Weight:125.9 FRAX RISK QUESTIONS: Alcohol (3 or more units per day): no Family History (Parent hip fracture): no Glucocorticoids (More than 3mos): no History of Fracture in Adulthood: no Secondary Osteoporosis: 1. Type 1 Diabetes: no 2. Hyperthyroidism: no 3. Menopause before 45: no 4. Malnutrition: no 5. Chronic liver disease: no Rheumatoid Arthritis: no Current Tobacco Use: no RISK FACTORS HISTORY OF: Hip Fracture (Right/Left): no Spine Fracture: no History of Wrist Fracture: no Surgery to Spine/Hip(right/left)/Wrist (right/left): no Family History of Osteoporosis: Mother Active: no Diet low in dairy products/other sources of calcium: no Postmenopausal woman: yes Take estrogen and/or progesterone medications: no Lost more than 2 inches in height since high school: yes Frequent falls: yes Poor Health: yes Hyperparathyroidism: no Adrenal Insufficiency: no MEDICATIONS: Prednisone or other steroids: no Thyroid Medications: no Osteoporosis Medications: no Additional Medications: Metformin, Pt does not have a list and does not remember the meds she does t raymond. Additional History: EXAM MEASUREMENTS: Bone mineral densitometry was performed using the [employer] System. Bone mineral density as measured about the Lumbar spine is: ----- L1-L4(G/cm2): 1.045 T Score Values are as follows: ----- L1: -2.8 ----- L2: -1.5 ----- L3: -0.5 ----- L4: -0.8 ----- L1-L4: -1.1 Z Score Values are as follows: ----- L1: -0.8 ----- L2: 0.5 ----- L3: 1.6 ----- L4: 1.3 ----- L1-L4: 0.9 Bone mineral density has: decreased -5.2 % since study of: 09/09/2019 Bone mineral density about the R hip (g/cm2): 0.878 Bone mineral density about the L hip (g/cm2): 0.961 T Score values are as follows: -----R Neck: -0.8 -----L Neck: -0.7 -----R Total: -1.0 -----L Total: -0.4 Z Score values are as follows: -----R Neck: 1.4 -----L Neck: 1.5 -----R Total: 1.0 -----L Total: 1.7 Bone mineral density has: decreased -9.3 % since study of: 09/09/2019 FRAX%s: The graph provided illustrates a 10.3% chance for a major osteoporotic fx and a 1.6% chance f or the hips probability for fx in 10 years time. IMPRESSION: Osteopenia (T Score between -2.5 and -1). There is slightly increased risk of fracture and the patient may be considered for treatment. Re-Screen 2-5 years. NOTE: T-SCORE=SD OF THE YOUNG ADULT MEAN.
--- NOTE | 2023-02-14 08:38 | MM ---
Reason for Exam: Screening (asymptomatic). Last mammogram was performed 1 year(s) and 1 month(s) ago. Patient History: Menarche at age 13. First Full-Term at age 22. Left ovary removed at age 38. Right ovary removed at age 34. Hysterectomy at age 34. Other cancer. Estrogen for 15 years from age 40 until age 55. Progesterone for 15 years from age 40 until age 55. 1994, Benign Excisional Biopsy on the right side. Risk Values: Lisbeth 5 year model risk: 1.8%. NCI Lifetime model risk: 3.5%. Prior Study Comparison: 09/09/2019 Bilateral Screening Mammogram, [facility]. 09/23/2020 Bilateral Screening Mammogram, [facility]. 01/16/2022 Bilateral MG 3D screening mammo w/cad, [facility]. Tissue Density: The breast tissue is almost entirely fat. Findings: Analyzed By CAD. Bilateral benign-appearing calcifications. There is no suspicious group of microcalcifications or new suspicious mass in either breast. Overall Assessment: Benign, BI-RAD 2 Management: Screening Mammogram of both breasts in [address] [facility] will attempt to contact patient to return for supplemental views and ultrasound if indicated. Patient should continue monthly self-breast exams. A clinical breast exam by your physician is recommended on an annual basis. This exam should not preclude additional follow-up of suspicious palpable abnormalities. Note on Lisbeth scores and lifetime risk: 1. A Lisbeth score greater than 3% is considered moderate risk. If this is the case, consider specialist referral to assess eligibility for a risk reducing agent. 2. If overall lifetime risk for the development of breast cancer is 20% or higher, the patient may qualify for future screening with alternating mammogram and breast MRI. Electronically signed and approved by: Phillip Valero DO
== END | disposition home or self-care (01) ==
LOC: RADMAMWWP 14:32
PROVIDERS: ATTEND Internal Medicine Geriatric Medicine
DX: Z12.31 Encounter for screening mammogram for malignant neoplasm of breast (principal); M85.89 Other specified disorders of bone density and structure, multiple sites; M81.0 Age-related osteoporosis without current pathological fracture; Z90.710 Acquired absence of both cervix and uterus
CPT/HCPCS: 77063; 77067; 77080

== ENCOUNTER 2023-10-07 10:21 | Emergency (ER) | payer MEDICARE, OTHER ==
[2023-10-07 10:38] VITALS: RESP 18; TEMP 97.9
--- NOTE | 2023-10-07 10:52 | ED ---
General Adult HPI - General Chief complaint: Fall Stated complaint: Fall-left side injury Time Seen by Provider: 10/07/23 10:30 Source: patient, RN notes reviewed, old records reviewed Mode of arrival: wheelchair Limitations: physical limitation - History of Present Illness Initial comments: This is a 78-year-old female who presents to the emergency department comes in complaining of a skin tear on the left forearm. Patient states she fell in the closet and hit it against a shelf. Patient states she does have a little bit of forearm pain. Patient states she does not know when she had her last tetanus. Patient denies hitting her head or neck. Patient denies any back pain. Patient has any abdominal pain. Patient denies any other problems at this time - Related Data Home Medications Medication Instructions Recorded Confirmed Clopidogrel [Plavix] 75 mg PO DIRECTED 08/23/14 02/13/22 Furosemide [Lasix] 20 mg PO DAILY@0630 08/23/14 02/13/22 Levothyroxine Sodium [Synthroid] 50 mcg PO HS 09/08/14 02/13/22 Famotidine 20 mg PO HS 09/28/14 02/13/22 Acetaminophen/Caffeine [Excedrin 2 tab PO Q12H PRN 10/15/20 02/13/22 Tension Headache Cplt] Lidocaine 5% Patch [Lidoderm] 1 patch TOPICAL DAILY PRN 10/15/20 02/13/22 Rosuvastatin [Crestor] 10 mg PO DAILY 10/15/20 02/13/22 metFORMIN HCL [Glucophage] 500 mg PO BID@0630,1830 10/15/20 02/13/22 predniSONE 2.5 mg PO DAILY@0630 10/15/20 02/13/22 Betamethasone Dipropionate 1 applic TOPICAL DIRECTED PRN 02/13/22 02/13/22 [Diprolene AF 0.05% Cream] Calcium Carbonate/Vitamin D3 1 tab PO DAILY 02/13/22 02/13/22 [Calcium 500 mg-Vit D3 5 mcg (200 Unit)] Celecoxib [CeleBREX] 100 mg PO BID@0630,1830 02/13/22 02/13/22 Dulaglutide [Trulicity] 3 mg SQ WE@0630 02/13/22 02/13/22 Empagliflozin [Jardiance] 25 mg PO DAILY 02/13/22 02/13/22 Fexofenadine HCl [Mercedes Allergy] 180 mg PO DAILY 02/13/22 02/13/22 Ketoconazole 2% Cream [Nizoral 2%] 1 applic TOPICAL DAILY PRN 02/13/22 02/13/22 Ketoconazole 2% Shampoo [Nizoral] 1 applic TOPICAL DIRECTED PRN 02/13/22 02/13/22 Olmesartan Medoxomil 10 mg PO DAILY 02/13/22 02/13/22 Triamcinolone Acetonide [Nasacort] 1 spray EA NOSTRIL BID PRN 02/13/22 02/13/22 Previous Rx's Medication Instructions Recorded Cephalexin [Keflex] 500 mg PO Q6HR 10 Days #40 cap 02/13/22 Allergies Allergy/AdvReac Type Severity Reaction Status Date / Time adhesive Allergy "RED SKIN, Verified 10/07/23 10:34 ITCHING codeine Allergy Nausea & Verified 10/07/23 10:34 Vomiting diazepam [From Valium] Allergy Rash/Hives Verified 10/07/23 10:34 morphine Allergy "DOES NOT Verified 10/07/23 10:34 TAKE THE PAIN AWAY" oxycodone HCl [From Percodan] Allergy Nausea & Verified 10/07/23 10:34 Vomiting oxycodone terephthalate Allergy Nausea & Verified 10/07/23 10:34 [From Percodan] Vomiting Penicillins Allergy Unknown Verified 10/07/23 10:34 Childhood Sulfa (Sulfonamide Allergy Nausea & Verified 10/07/23 10:34 Antibiotics) Vomiting steroids Allergy Chest Pain Uncoded 10/07/23 10:34 tape Allergy Itching Uncoded 10/07/23 10:34 Review of Systems ROS Statement: Those systems with pertinent positive or pertinent negative responses have been documented in the HPI. ROS Other: All systems not noted in ROS Statement are negative. Past Medical History Past Medical History: CVA/TIA, Diabetes Mellitus, GERD/Reflux, Hyperlipidemia, Hypertension, Musculoskeletal Disorder, Neurologic Disorder, Osteoarthritis (OA), Skin Disorder, Thyroid Disorder Additional Past Medical History / Comment(s): TIA yrs. ago, Parkinson's, CHRONIC BACK PAIN, PSORIASIS, History of Any Multi-Drug Resistant Organisms: None Reported Past Surgical History: Breast Surgery, Cholecystectomy, Hysterectomy, Orthopedic Surgery Additional Past Surgical History / Comment(s): rotator cuff . arthroscopic rt knee. carpal tunnel britney. A&P REPAIR. BREAST BX. RT SIDE. TMJ SURG. Past Anesthesia/Blood Transfusion Reactions: Motion Sickness Past Psychological History: Anxiety Smoking Status: Never smoker Past Alcohol Use History: None Reported Past Drug Use History: None Reported - Past Family History Father Family Medical History: Cancer Additional Family Medical History / Comment(s): FATHER COLON CANCER General Exam - General Exam Comments Initial Comments: GENERAL Patient is well-developed and well-nourished. Patient is in mild distress. EYES Patient's pupils are equal and round. Extraocular motion is intact SKIN Unremarkable NEURO The patient is alert and oriented -3 PYSCH Patient has normal interpersonal interactions. MUSCULOSKELETAL Patient has 2 skin tears on the left forearm. There is some tenderness around that area. Limitations: physical limitation Course Vital Signs 10/07/23 10:26 Temperature 97.9 F Pulse Rate 83 Respiratory 18 Rate Blood Pressure 115/73 O2 Sat by Pulse 97 Oximetry Medical Decision Making - Medical Decision Making Was pt. sent in by a medical professional or institution (, PA, ENVELOPE SEALING MACHINE OPERATOR, urgent care, hospital, or shelter...) When possible be specific @ -No Did you speak to anyone other than the patient for history (EMS, parent, family, police, friend...)? What history was obtained from this source @ - gave a lot of the history Did you review nursing and triage notes (agree or disagree)? Why? @ -I reviewed and agree with nursing and triage notes Were old charts reviewed (outside hosp., previous admission, EMS record, old EKG, old radiological studies, urgent care reports/EKG's, shelter records)? Report findings @ -No old charts were reviewed Differential Diagnosis (chest pain, altered mental status, abdominal pain women, abdominal pain men, vaginal bleeding, weakness, fever, dyspnea, syncope, headache, dizziness, GI bleed, back pain, seizure, CVA, palpatations, mental health, musculoskeletal)? @ -Differential Musculoskeletal Muscular strain, contusion, ligament sprain, fracture, arthritis, septic arthritis, bursitis, cellulitis, muscle spasm, nerve compression, DVT, arterial occlusion, herpes zoster, electrolyte abnormality, tumor.... This is not meant to be in all inclusive list EKG interpreted by me (3pts min.). @ -As above X-rays interpreted by me (1pt min.). @ -X-ray of the forearm shows no acute fracture CT interpreted by me (1pt min.). @ -None done U/S interpreted by me (1pt. min.). @ -None done What testing was considered but not performed or refused? (CT, X-rays, U/S, labs)? Why? @ -None What meds were considered but not given or refused? Why? @ -None Did you discuss the management of the patient with other professionals (professionals i.e. , PA, ENVELOPE SEALING MACHINE OPERATOR, lab, RT, psych nurse, geriatric social worker, attorney lawyer, teacher, campus safety officer, case operator)? Give summary @ -No Was smoking cessation discussed for >3mins.? @ -No Was critical care preformed (if so, how long)? @ -No Were there social determinants of health that impacted care today? How? (Homelessness, low income, unemployed, alcoholism, drug addiction, transportation, low edu. Level, literacy, decrease access to med. care, long-term, rehab)? @ -No Was there de-escalation of care discussed even if they declined (Discuss DNR or withdrawal of care, Hospice)? DNR status @ -No What co-morbidities impacted this encounter? (DM, HTN, Smoking, COPD, CAD, Cancer, CVA, ARF, Chemo, Hep., AIDS, mental health diagnosis, sleep apnea, morbid obesity)? @ -None Was patient admitted / discharged? Hospital course, mention meds given and route, prescriptions, significant lab abnormalities, going to OR and other pertinent info. @ -Patient was given a tetanus shot and then had the area Steri-Stripped because it was only a skin care no laceration. X-ray was negative. Undiagnosed new problem with uncertain prognosis? @ -No Drug Therapy requiring intensive monitoring for toxicity (Heparin, Nitro, Insulin, Cardizem)? @ -No Were any procedures done? @ -No Diagnosis/symptom? @ -Skin tear Acute, or Chronic, or Acute on Chronic? @ -Acute Uncomplicated (without systemic symptoms) or Complicated (systemic symptoms)? @ -Uncomplicated Side effects of treatment? @ -No Exacerbation, Progression, or Severe Exacerbation? @ -No Poses a threat to life or bodily function? How? (Chest pain, [place], [place], pneumonia, PE, COPD, DKA, ARF, appy, cholecystitis, CVA, Diverticulitis, Homicidal, Suicidal, threat to staff... and all critical care pts) @ -No Diagnosis/symptom? @ -Fall Acute, or Chronic, or Acute on Chronic? @ -Acute Uncomplicated (without systemic symptoms) or Complicated (systemic symptoms)? @ -Complicated Side effects of treatment? @ -None Exacerbation, Progression, or Severe Exacerbation] @ -No Poses a threat to life or bodily function? @ -No Disposition Clinical Impression: Skin tear, Fall Disposition: HOME SELF-CARE Condition: Good Instructions (If sedation given, give patient instructions): Fall Prevention for Older Adults (ED), Skin Tear (ED) Is patient prescribed a controlled substance at d/c from ED?: No Referrals: Byron Banuelos MD [Primary Care Provider] - 1-2 days Time of Disposition: 11:28
--- NOTE | 2023-10-07 11:21 | XR ---
EXAMINATION TYPE: XR forearm LT DATE OF EXAM: 10/07/2023 11:06 AM CLINICAL INDICATION:Female, 78 years old with history of Trauma; [facility] COMPARISON: None TECHNIQUE: XR forearm LT; forearm was examined in AP and lateral projections. FINDINGS: No acute osseous pathology, soft tissue swelling or joint dislocations are seen. IMPRESSION: No evidence of acute fracture.
[2023-10-07 12:09] VITALS: BP 116/70; PULSE 80
== END 2023-10-07 11:51 | disposition home or self-care (01) ==
LOC: EC 10:21
DX: S51.812A Laceration without foreign body of left forearm, initial encounter (principal); E11.9 Type 2 diabetes mellitus without complications; E78.5 Hyperlipidemia, unspecified; I10 Essential (primary) hypertension; E07.9 Disorder of thyroid, unspecified; K21.9 Gastro-esophageal reflux disease without esophagitis; Z79.84 Long term (current) use of oral hypoglycemic drugs; Z79.899 Other long term (current) drug therapy; Z79.02 Long term (current) use of antithrombotics/antiplatelets; Z79.890 Hormone replacement therapy; Z88.5 Allergy status to narcotic agent; Z88.0 Allergy status to penicillin; Z88.2 Allergy status to sulfonamides; Z88.8 Allergy status to other drugs, medicaments and biological substances; W18.09XA Striking against other object with subsequent fall, initial encounter
CPT/HCPCS: 99284

== ENCOUNTER 2024-03-11 06:34 | Emergency (ER) | payer MEDICARE, OTHER ==
--- NOTE | 2024-03-11 06:57 | ED ---
General Adult HPI - General Source: patient, RN notes reviewed Mode of arrival: wheelchair Limitations: no limitations <Shon Faulkner - Last Filed: 03/11/24 07:07> - General Source: patient, RN notes reviewed, old records reviewed <Rl Kirkland - Last Filed: 03/11/24 09:54> - General Chief complaint: Altered Mental Status Stated complaint: AMS Time Seen by Provider: 03/11/24 06:45 - History of Present Illness Initial comments: 78-year-old female presents emergency department with family for increasing nighttime confusion. Patient does have known Parkinson's which she sees a physician out of [facility] but also sees Dr. brock his primary care physician. Family states that she has been up all night and of recently over the last several weeks she has been having worsening symptoms at nighttime. Patient is on Seroquel at nighttime to help with his sleep. Patient does not have any recent infections. Patient had no URI symptoms. Family states that she had a change in behavior, mentation issues (Shon Faulkner) Patient originally seen as a quick note. Patient is a 78-year-old female with history of diabetes, hypertension, hyperlipidemia, Parkinson's disease, as well as suspected dementia and a TIA presents emergency department with family over concern for worsening nighttime confusion. This has been an ongoing issue for weeks to months for the patient. They do do suspect that the patient has some degree of dementia. Has been hallucinating intermittently at night and becomes slightly more confused at night which seems to resolve during the day and then once again happens at night. She is on some sleep aids such as Seroquel at home. They are uncertain if this is helping or not. Apparently last night was severe which is why they brought her in for evaluation. Currently has somewhat acting her normal self at this time. Still somewhat slightly confused to year. Slight cough but no other significant symptoms at this time. Presents for further evaluation. No significant trauma is not on blood thinners. (Rl Kirkland) - Related Data Home Medications Medication Instructions Recorded Confirmed Clopidogrel [Plavix] 75 mg PO DIRECTED 08/23/14 02/13/22 Furosemide [Lasix] 20 mg PO DAILY@0630 08/23/14 02/13/22 Levothyroxine Sodium [Synthroid] 50 mcg PO HS 09/08/14 02/13/22 Famotidine 20 mg PO HS 09/28/14 02/13/22 Acetaminophen/Caffeine [Excedrin 2 tab PO Q12H PRN 10/15/20 02/13/22 Tension Headache Cplt] Lidocaine 5% Patch [Lidoderm] 1 patch TOPICAL DAILY PRN 10/15/20 02/13/22 Rosuvastatin [Crestor] 10 mg PO DAILY 10/15/20 02/13/22 metFORMIN HCL [Glucophage] 500 mg PO BID@0630,1830 10/15/20 02/13/22 predniSONE 2.5 mg PO DAILY@0630 10/15/20 02/13/22 Betamethasone Dipropionate 1 applic TOPICAL DIRECTED PRN 02/13/22 02/13/22 [Diprolene AF 0.05% Cream] Calcium Carbonate/Vitamin D3 1 tab PO DAILY 02/13/22 02/13/22 [Calcium 500 mg-Vit D3 5 mcg (200 Unit)] Celecoxib [CeleBREX] 100 mg PO BID@0630,1830 02/13/22 02/13/22 Dulaglutide [Trulicity] 3 mg SQ WE@0630 02/13/22 02/13/22 Empagliflozin [Jardiance] 25 mg PO DAILY 02/13/22 02/13/22 Fexofenadine HCl [Mercedes Allergy] 180 mg PO DAILY 02/13/22 02/13/22 Ketoconazole 2% Cream [Nizoral 2%] 1 applic TOPICAL DAILY PRN 02/13/22 02/13/22 Ketoconazole 2% Shampoo [Nizoral] 1 applic TOPICAL DIRECTED PRN 02/13/22 02/13/22 Olmesartan Medoxomil 10 mg PO DAILY 02/13/22 02/13/22 Triamcinolone Acetonide [Nasacort] 1 spray EA NOSTRIL BID PRN 02/13/22 02/13/22 Previous Rx's Medication Instructions Recorded Cephalexin [Keflex] 500 mg PO Q6HR 10 Days #40 cap 02/13/22 risperiDONE [RisperDAL] 0.5 mg PO BID 7 Days #14 tablet 03/11/24 Allergies Allergy/AdvReac Type Severity Reaction Status Date / Time adhesive Allergy "RED SKIN, Verified 03/11/24 06:40 ITCHING codeine Allergy Nausea & Verified 03/11/24 06:40 Vomiting diazepam [From Valium] Allergy Rash/Hives Verified 03/11/24 06:40 morphine Allergy "DOES NOT Verified 03/11/24 06:40 TAKE THE PAIN AWAY" oxycodone HCl [From Percodan] Allergy Nausea & Verified 03/11/24 06:40 Vomiting oxycodone terephthalate Allergy Nausea & Verified 03/11/24 06:40 [From Percodan] Vomiting Penicillins Allergy Unknown Verified 03/11/24 06:40 Childhood Sulfa (Sulfonamide Allergy Nausea & Verified 03/11/24 06:40 Antibiotics) Vomiting steroids Allergy Chest Pain Uncoded 10/07/23 10:34 tape Allergy Itching Uncoded 10/07/23 10:34 Review of Systems ROS Other: All systems not noted in ROS Statement are negative. <Shon Faulkner - Last Filed: 03/11/24 07:07> ROS Other: All systems not noted in ROS Statement are negative. <Rl Kirkland - Last Filed: 03/11/24 09:54> ROS Statement: Those systems with pertinent positive or pertinent negative responses have been documented in the HPI. Review of Systems: CONST: Denies fever EYES: Denies blurry vision ENT: Denies nasal congestion C/V: Denies Chest pain RESP: Denies shortness of breath GI: Denies abdominal pain : Denies dysuria SKIN: Denies rash. MSK: Denies joint pain. NEURO: Denies headache (Rl Kirkland) Past Medical History Past Medical History: CVA/TIA, Diabetes Mellitus, GERD/Reflux, Hyperlipidemia, Hypertension, Musculoskeletal Disorder, Neurologic Disorder, Osteoarthritis (OA), Skin Disorder, Thyroid Disorder Additional Past Medical History / Comment(s): TIA yrs. ago, Parkinson's, CHRONIC BACK PAIN, PSORIASIS, History of Any Multi-Drug Resistant Organisms: None Reported Past Surgical History: Breast Surgery, Cholecystectomy, Hysterectomy, Orthopedic Surgery Additional Past Surgical History / Comment(s): rotator cuff . arthroscopic rt knee. carpal tunnel britney. A&P REPAIR. BREAST BX. RT SIDE. TMJ SURG. Past Anesthesia/Blood Transfusion Reactions: Motion Sickness Past Psychological History: Anxiety Smoking Status: Never smoker Past Alcohol Use History: None Reported Past Drug Use History: None Reported - Past Family History Father Family Medical History: Cancer Additional Family Medical History / Comment(s): FATHER COLON CANCER <Shon Faulkner - Last Filed: 03/11/24 07:07> General Exam Limitations: no limitations General appearance: alert, in no apparent distress Head exam: Present: atraumatic, normocephalic, normal inspection Eye exam: Present: normal appearance, PERRL, EOMI. Absent: scleral icterus, con junctival injection, periorbital swelling ENT exam: Present: normal exam, normal oropharynx, mucous membranes moist Neck exam: Present: normal inspection, full ROM. Absent: tenderness, meningismus, lymphadenopathy Respiratory exam: Present: normal lung sounds bilaterally. Absent: respiratory distress, wheezes, rales, rhonchi, stridor Cardiovascular Exam: Present: regular rate, normal rhythm, systolic murmur. Absent: diastolic murmur, rubs, gallop, clicks Neurological exam: Present: alert <Shon Faulkner - Last Filed: 03/11/24 07:07> <Rl Kirkland - Last Filed: 03/11/24 09:54> - General Exam Comments Initial Comments: General: Appears in no acute distress. HEAD: Normal with no signs of head trauma. EYES: PERRLA, EOMI, conjunctiva normal, no discharge. Pupils are 3 mm and equal bilaterally. ENT: Hearing grossly intact, normal oropharynx. RESPIRATORY: Clear breath sounds bilaterally. No wheezes, rales, or rhonchi. C/V: Regular rate and rhythm. S1 and S2 auscultated, no edema, peripheral pulses 2+ and intact throughout ABD: Abd is soft, nontender, nondistended EXT: Normal range of motion, no obvious deformity SKIN: No rashes or lesions observed on exposed skin. NEURO: Alert and oriented x 2-3. No focal deficits. (Rl Kirkland) Course Vital Signs 03/11/24 03/11/24 03/11/24 06:35 08:36 09:37 Temperature 97.4 F L 98.0 F Pulse Rate 95 90 88 Respiratory 16 16 18 Rate Blood Pressure 94/47 127/70 118/57 O2 Sat by Pulse 94 L 95 94 L Oximetry EKG Findings - EKG Comments: EKG Findings:: EKG performed at 6: 47 sinus rhythm rate of 95 MN 193 QRS 100 QT/QTc 360/412 - EKG Results: EKG: interpreted by ERMD <Shon Faulkner Last Filed: 03/11/24 07:07> Medical Decision Making <Shon Faulkner Santa - Last Filed: 03/11/24 07:07> - Lab Data Result diagrams: 03/11/24 06:07 03/11/24 06:07 - EKG Data -: EKG Interpreted by Me <Rl Kirkland - Last Filed: 03/11/24 09:54> - Medical Decision Making I completed the quick note portion of this chart signed Shon Faulkner PA-C (Shon Faulkner) Was pt. sent in by a medical professional or institution (JAMES Lucio, INVESTIGATOR, urgent care, hospital, or group home...) When possible be specific @ -No Did you speak to anyone other than the patient for history (EMS, parent, family, police, friend...)? What history was obtained from this source @ -Spoke with patient's and son who are the primary caregivers for the patient. They are concerned regarding his nighttime episodes. Did you review nursing and triage notes (agree or disagree)? Why? @ -I reviewed and agree with nursing and triage notes Were old charts reviewed (outside hosp., previous admission, EMS record, old EKG, old radiological studies, urgent care reports/EKG's, group home records)? Report findings @ -Old medication list reviewed which does confirm patient is on Seroquel nightly. Differential Diagnosis (chest pain, altered mental status, abdominal pain women, abdominal pain men, vaginal bleeding, weakness, fever, dyspnea, syncope, hea dache, dizziness, GI bleed, back pain, seizure, CVA, palpatations, mental health, musculoskeletal)? @ -Differential Altered Mental Status: Hypoglycemia, DKA, hypercapnia, ETOH, overdose, CO poisoning, trauma, myxedema coma, HTN encephalopathy, infection, encephalitis, psychosis, intercranial hemor rhage, hepatic encephalopathy, meningitis, CVA, this is not meant to be an all- inclusive list EKG interpreted by me (3pts min.). @ -As above X-rays interpreted by me (1pt min.). @ -Chest x-ray reveals no obvious acute cardiopulmonary process. CT interpreted by me (1pt min.). @ -CT brain reveals no obvious acute intracranial process. U/S interpreted by me (1pt. min.). @ -None done What testing was considered but not performed or refused? (CT, X-rays, U/S, labs)? Why? @ -None What meds were considered but not given or refused? Why? @ -None Did you discuss the management of the patient with other professionals (professionals i.e. , PA, INVESTIGATOR, lab, RT, psych nurse, oncology social worker, development writer, teacher, protection officer, immigration case manager)? Give summary @ -I discussed the patient with Dr. Brock after results of workup. He agrees with me that this does seem like progressive dementia. We discussed follow-up versus admission and was in agreement with what ever the would like to do. If patient is discharged home, wanted the patient switch from Seroquel to Risperdal 0.5 mg twice daily and follow-up with him in the office in 48 to 72 hours. Patient can also follow-up with neurology. Was smoking cessation discussed for >3mins.? @ -No Was critical care preformed (if so, how long)? @ -No Were there social determinants of health that impacted care today? How? (Homelessness, low income, unemployed, alcoholism, drug addiction, transportation, low edu. Level, literacy, decrease access to med. care, intermediate, rehab)? @ -No Was there de-escalation of care discussed even if they declined (Discuss DNR or withdrawal of care, Hospice)? DNR status @ -No What co-morbidities impacted this encounter? (DM, HTN, Smoking, COPD, CAD, Cancer, CVA, ARF, Chemo, Hep., AIDS, mental health diagnosis, sleep apnea, morbid obesity)? @ -Parkinson's, as well as what sounds like progressive dementia Was patient admitted / discharged? Hospital course, mention meds given and route, prescriptions, significant lab abnormalities, going to OR and other pertinent info. @ -Patient presents emergency department with what sounds like progressive dementia with sundowning at night. She is already on sleep aid such as Seroquel for this. Was brought in by family over concern for worsening episodes at night . Patient currently has no acute complaints. Seems more or less at her baseline. Will obtain basic labs, and I did offer CT imaging of brain as well as chest x-ray which they accepted. Screening EKG will also be obtained. They were in agreement this plan. Patient's laboratory studies are unremarkable. CT brain unremarkable. EKG shows no signs of acute ischemia.Chest x-ray unremarkable. I spoke with patient's PCP Dr. Brock. He is in agreement that patient does not absolutely need to be admitted however family who are primary caregivers would like the patient admitted for placement that is reasonable. Otherwise patient can follow-up with him in 48 to 72 hours or her neurologist. Recommended switching patient from Seroquel to Risperdal 0.5 mg twice daily. I spoke with patient's who would like the patient to go home at this time. Was in agreement plan for medication change. Patient will no longer receive her Seroquel at night but will instead take respite all 0.5 mg twice daily. She will be given a dose prior to discharge. Prescription sent for 1 week for patient have enough time for follow-up. Patient and patient's in agreement this plan. I will provide the patient with a prescription for respite all. I instructed the patient to follow up with their PCP in the next 1-3 days.. I explained that the patient should return to the emergency department if they experience any worsening symptoms. Strict return precautions were discussed with the patient. The patient expressed understanding of these instructions. I answered all questions that the patient had. The patient was discharged home in good condition with their prescriptions and follow up information. Undiagnosed new problem with uncertain prognosis? @ -No Drug Therapy requiring intensive monitoring for toxicity (Heparin, Nitro, Insulin, Cardizem)? @ -No Were any procedures done? @ -No Diagnosis/symptom? @ -Dementia, sundowning, Parkinson's disease Acute, or Chronic, or Acute on Chronic? @ -Acute on chronic Uncomplicated (without systemic symptoms) or Complicated (systemic symptoms)? @ -Complicated Side effects of treatment? @ -None Exacerbation, Progression, or Severe Exacerbation] @ -No Poses a threat to life or bodily function? @ -Unlikely at this time (Rl Kirkland) - Lab Data Lab Results 03/11/24 03/11/24 03/11/24 Range/Units 06:07 06:07 06:07 WBC 8.4 (3.8-10.6) k/uL RBC 4.39 (3.80-5.40) m/uL Hgb 13.0 (11.4-16.0) gm/dL Hct 39.7 (34.0-46.0) % MCV 90.5 (80.0-100.0) fL MCH 29.7 (25.0-35.0) pg MCHC 32.8 (31.0-37.0) g/dL RDW 13.4 (11.5-15.5) % Plt Count 273 (150-450) k/uL MPV 7.6 Neutrophils % 71 % Lymphocytes % 18 % Monocytes % 7 % Eosinophils % 2 % Basophils % 1 % Neutrophils # 5.9 (1.3-7.7) k/uL Lymphocytes # 1.5 (1.0-4.8) k/uL Monocytes # 0.6 (0-1.0) k/uL Eosinophils # 0.2 (0-0.7) k/uL Basophils # 0.1 (0-0.2) k/uL Sodium 136 L (137-145) mmol/L Potassium 4.0 (3.5-5.1) mmol/L Chloride 104 (98-107) mmol/L Carbon Dioxide 26 (22-30) mmol/L Anion Gap 6 mmol/L BUN 24 H (7-17) mg/dL Creatinine 0.65 (0.52-1.04) mg/dL Est GFR (CKD-EPI)AfAm >90 (>60 ml/min/1.73 sqM) Est GFR (CKD-EPI)NonAf 86 (>60 ml/min/1.73 sqM) Glucose 190 H (74-99) mg/dL Plasma Lactic Acid Hammad 1.0 (0.7-2.0) mmol/L Calcium 9.6 (8.4-10.2) mg/dL Magnesium 2.3 (1.6-2.3) mg/dL Total Bilirubin 0.9 (0.2-1.3) mg/dL AST 26 (14-36) U/L ALT <6 (4-34) U/L Alkaline Phosphatase 88 (38-126) U/L Total Protein 7.0 (6.3-8.2) g/dL Albumin 4.2 (3.5-5.0) g/dL Urine Color Urine Appearance (Clear) Urine pH (5.0-8.0) Ur Specific [place] (1.001-1.035) Urine Protein (Negative) Urine Glucose (UA) (Negative) Urine Ketones (Negative) Urine Blood (Negative) Urine Nitrite (Negative) Urine Bilirubin (Negative) Urine Urobilinogen (<2.0) mg/dL Ur Leukocyte Esterase (Negative) 03/11/24 Range/Units 07:44 WBC (3.8-10.6) k/uL RBC (3.80-5.40) m/uL Hgb (11.4-16.0) gm/dL Hct (34.0-46.0) % MCV (80.0-100.0) fL MCH (25.0-35.0) pg MCHC (31.0-37.0) g/dL RDW (11.5-15.5) % Plt Count (150-450) k/uL MPV Neutrophils % % Lymphocytes % % Monocytes % % Eosinophils % % Basophils % % Neutrophils # (1.3-7.7) k/uL Lymphocytes # (1.0-4.8) k/uL Monocytes # (0-1.0) k/uL Eosinophils # (0-0.7) k/uL Basophils # (0-0.2) k/uL Sodium (137-145) mmol/L Potassium (3.5-5.1) mmol/L Chloride (98-107) mmol/L Carbon Dioxide (22-30) mmol/L Anion Gap mmol/L BUN (7-17) mg/dL Creatinine (0.52-1.04) mg/dL Est GFR (CKD-EPI)AfAm (>60 ml/min/1.73 sqM) Est GFR (CKD-EPI)NonAf (>60 ml/min/1.73 sqM) Glucose (74-99) mg/dL Plasma Lactic Acid Hammad (0.7-2.0) mmol/L Calcium (8.4-10.2) mg/dL Magnesium (1.6-2.3) mg/dL Total Bilirubin (0.2-1.3) mg/dL AST (14-36) U/L ALT (4-34) U/L Alkaline Phosphatase (38-126) U/L Total Protein (6.3-8.2) g/dL Albumin (3.5-5.0) g/dL Urine Color Light Yellow Urine Appearance Clear (Clear) Urine pH 5.0 (5.0-8.0) Ur Specific [place] 1.032 (1.001-1.035) Urine Protein Negative (Negative) Urine Glucose (UA) 4+ H (Negative) Urine Ketones Negative (Negative) Urine Blood Negative (Negative) Urine Nitrite Negative (Negative) Urine Bilirubin Negative (Negative) Urine Urobilinogen <2.0 (<2.0) mg/dL Ur Leukocyte Esterase Negative (Negative) - EKG Data EKG Comments: 12-lead Electrocardiogram Interpretation Note EKG was reviewed and interpreted by myself. 12-lead ECG performed at 0647 is interpreted by me as revealing normal sinus rhythm at a rate of 95 beats per minute. [place] is normal. MN interval is 193 ms, QRS duration is 100 ms, QTc is 412 ms.. There were no ST or T wave abnormalities to suggest myocardial ischemia or injury. R wave progression across the precordium was satisfactory. By my interpretation this EKG is non-diagnostic for acute ischemia. (Rl Kirkland) Disposition <Shon Faulkner - Last Filed: 03/11/24 07:07> Is patient prescribed a controlled substance at d/c from ED?: No Time of Disposition: 09:20 <Rl Kirkland - Last Filed: 03/11/24 09:54> Clinical Impression: Dementia, Parkinsons disease, Sundowning Disposition: HOME SELF-CARE Condition: Good Additional Instructions: Stop seroquel (quetiapine) and begin Risperidone 0.5mg BID and follow up with Dr. brock or neurologist in 2-3days. Prescriptions: risperiDONE [RisperDAL] 0.5 mg PO BID 7 Days #14 tablet Referrals: Byron Brock MD [Primary Care Provider] - 1-2 days
[2024-03-11 07:39] LABS: ALT <6 U/L (4-34); AST 26 U/L (14-36); African American GFR (CKD) >90 (>60 ml/min/1.73 sqM); Albumin 4.2 g/dL (3.5-5.0); Alkaline Phosphatase 88 U/L (38-126); Anion Gap 6 mmol/L; Blood Urea Nitrogen 24 mg/dL (7-17); Calcium 9.6 mg/dL (8.4-10.2); Carbon Dioxide 26 mmol/L (22-30); Chloride 104 mmol/L (98-107); Glucose 190 mg/dL (74-99); Magnesium 2.3 mg/dL (1.6-2.3); Non-African American GFR(CKD) 86 (>60 ml/min/1.73 sqM); Sodium 136 mmol/L (137-145); Total Bilirubin 0.9 mg/dL (0.2-1.3)
[2024-03-11 07:48] LABS: Basophils # (A) 0.1 k/uL (0-0.2); Basophils % (A) 1 %; Eosinophils # (A) 0.2 k/uL (0-0.7); Eosinophils % (A) 2 %; HCT 39.7 % (34.0-46.0); Lymphocytes # (A) 1.5 k/uL (1.0-4.8); Lymphocytes % (A) 18 %; MCH 29.7 pg (25.0-35.0); MCHC 32.8 g/dL (31.0-37.0); MCV 90.5 fL (80.0-100.0); Mean Platelet Volume 7.6; Monocytes # (A) 0.6 k/uL (0-1.0); Monocytes % (A) 7 %; Neutrophils # (A) 5.9 k/uL (1.3-7.7); Neutrophils % (A) 71 %; Platelet Count 273 k/uL (150-450); RBC 4.39 m/uL (3.80-5.40); RDW 13.4 % (11.5-15.5); WBC 8.4 k/uL (3.8-10.6)
[2024-03-11 08:12] LABS: Appearance,Urine Clear (Clear); Bilirubin,Urine Negative (Negative); Blood,Urine Negative (Negative); Color,Urine Light Yellow; Glucose,Urine (UA) 4+ (Negative); Ketones,Urine Negative (Negative); Leukocyte Esterase,Urine Negative (Negative); Nitrite,Urine Negative (Negative); Protein,Urine Negative (Negative); Specific Gravity,Urine 1.032 (1.001-1.035); Urobilinogen,Urine <2.0 mg/dL (<2.0)
--- NOTE | 2024-03-11 08:24 | CT ---
EXAMINATION TYPE: CT brain wo con DATE OF EXAM: 03/11/2024 COMPARISON: 10/15/2020 HISTORY: AMS CT DLP: 1066.[address] of the brain was performed. The ventricles, basal cisterns and sulci overlying the cerebral convexities demonstrate mild enlargem ent. There is no evidence for intracranial hemorrhage or sulcal effacement. There is decreased attenuation about the periventricular white matter and deep white matter of both c erebral hemispheres, compatible with chronic small vessel ischemia. Differential diagnosis does inclu de demyelination. No mass effects are seen.No midline shift. Osseous calvarium is intact. If symptoms persist consider MRI. IMPRESSION: 1. Age related atrophic and chronic small vessel ischemic change without acute intracranial process s een at this time.
[2024-03-11] MEDS: ACETAMINOPHEN TAB 325 MG TAB PO STA (08:28)
[2024-03-11] MEDS: SODIUM CHLORIDE 0.9% 500 ML 500 ML IV ONE (08:35)
[2024-03-11 09:39] VITALS: BP 118/57; PULSE 88; RESP 18; TEMP 98
[2024-03-11] MEDS: risperiDONE 0.5 MG TAB PO STA (09:49)
--- NOTE | 2024-03-11 10:50 | XR ---
EXAMINATION TYPE: XR chest 1V portable DATE OF EXAM: 03/11/2024 9:52 AM CLINICAL INDICATION:Female, 78 years old with history of cough; [facility] COMPARISON: Chest radiographs from 02/13/2022 TECHNIQUE: XR chest 1V portable Frontal view of the chest. FINDINGS: Lungs/Pleura: Airspace opacities project over the heart. Superimposed fibrotic changes thought to be present. No evidence for pleural effusion or pneumothorax. Pulmonary vascularity: Unremarkable. Heart/mediastinum: Cardiomediastinal silhouette is unremarkable. Musculoskeletal: No acute osseous pathology. Other findings: None IMPRESSION: 1. Left lower lobe airspace opacities correlate for pneumonia. 2. Underlying chronic interstitial lung disease there is also felt to be present.
== END 2024-03-11 09:58 | disposition home or self-care (01) ==
LOC: EC 06:34
DX: F02.82 Dementia in other diseases classified elsewhere, unspecified severity, with psychotic disturbance (principal); G20.A1 Parkinson's disease without dyskinesia, without mention of fluctuations; F05 Delirium due to known physiological condition; Z88.2 Allergy status to sulfonamides; Z88.8 Allergy status to other drugs, medicaments and biological substances; Z88.0 Allergy status to penicillin; Z88.5 Allergy status to narcotic agent; Z91.048 Other nonmedicinal substance allergy status; Z88.1 Allergy status to other antibiotic agents
CPT/HCPCS: 36415; 51701; 70450; 71045; 80053; 81003; 83605; 83735; 85025; 93005; 96360; 99285

== ENCOUNTER 2024-04-24 03:30 | Inpatient (IN) | payer MEDICARE, OTHER ==
--- NOTE | 2024-04-24 03:51 | ED ---
General Adult HPI - General Chief complaint: Weakness Stated complaint: Weakness Time Seen by Provider: 04/24/24 03:32 Source: EMS Mode of arrival: EMS Limitations: altered mental status - History of Present Illness Initial comments: Dictation was produced using [employer] dictation software. please excuse any grammatical, word or spelling errors. Chief Complaint: 78-year-old demented female presents to the ER for weakness History of Present Illness: Patient is a 70-year-old female she has past medical history of dementia along with other significant comorbidities. According to EMS patient got out of bed and was leaning up against the wall. notices and called EMS. Apparently she was too weak to get back into bed. told EMS that he would like placement for the patient due to worsening debility. Patient is a poor historian. It is unclear what patient's baseline mentation is. Unable to obtain ROS secondary to mental status - Related Data Home Medications Medication Instructions Recorded Confirmed Clopidogrel [Plavix] 75 mg PO DIRECTED 08/23/14 02/13/22 Furosemide [Lasix] 20 mg PO DAILY@0630 08/23/14 02/13/22 Levothyroxine Sodium [Synthroid] 50 mcg PO HS 09/08/14 02/13/22 Famotidine 20 mg PO HS 09/28/14 02/13/22 Acetaminophen/Caffeine [Excedrin 2 tab PO Q12H PRN 10/15/20 02/13/22 Tension Headache Cplt] Lidocaine 5% Patch [Lidoderm] 1 patch TOPICAL DAILY PRN 10/15/20 02/13/22 Rosuvastatin [Crestor] 10 mg PO DAILY 10/15/20 02/13/22 metFORMIN HCL [Glucophage] 500 mg PO BID@0630,1830 10/15/20 02/13/22 predniSONE 2.5 mg PO DAILY@0630 10/15/20 02/13/22 Betamethasone Dipropionate 1 applic TOPICAL DIRECTED PRN 02/13/22 02/13/22 [Diprolene AF 0.05% Cream] Calcium Carbonate/Vitamin D3 1 tab PO DAILY 02/13/22 02/13/22 [Calcium 500 mg-Vit D3 5 mcg (200 Unit)] Celecoxib [CeleBREX] 100 mg PO BID@0630,1830 02/13/22 02/13/22 Dulaglutide [Trulicity] 3 mg SQ WE@0630 02/13/22 02/13/22 Empagliflozin [Jardiance] 25 mg PO DAILY 02/13/22 02/13/22 Fexofenadine HCl [Mercedes Allergy] 180 mg PO DAILY 02/13/22 02/13/22 Ketoconazole 2% Cream [Nizoral 2%] 1 applic TOPICAL DAILY PRN 02/13/22 02/13/22 Ketoconazole 2% Shampoo [Nizoral] 1 applic TOPICAL DIRECTED PRN 02/13/22 02/13/22 Olmesartan Medoxomil 10 mg PO DAILY 02/13/22 02/13/22 Triamcinolone Acetonide [Nasacort] 1 spray EA NOSTRIL BID PRN 02/13/22 02/13/22 Previous Rx's Medication Instructions Recorded Cephalexin [Keflex] 500 mg PO Q6HR 10 Days #40 cap 02/13/22 risperiDONE [RisperDAL] 0.5 mg PO BID 7 Days #14 tablet 03/11/24 Allergies Allergy/AdvReac Type Severity Reaction Status Date / Time adhesive Allergy "RED SKIN, Verified 04/24/24 03:37 ITCHING codeine Allergy Nausea & Verified 04/24/24 03:37 Vomiting diazepam [From Valium] Allergy Rash/Hives Verified 04/24/24 03:37 morphine Allergy "DOES NOT Verified 04/24/24 03:37 TAKE THE PAIN AWAY" oxycodone HCl [From Percodan] Allergy Nausea & Verified 04/24/24 03:37 Vomiting oxycodone terephthalate Allergy Nausea & Verified 04/24/24 03:37 [From Percodan] Vomiting Penicillins Allergy Unknown Verified 04/24/24 03:37 Childhood Sulfa (Sulfonamide Allergy Nausea & Verified 04/24/24 03:37 Antibiotics) Vomiting steroids Allergy Chest Pain Uncoded 04/24/24 03:37 tape Allergy Itching Uncoded 04/24/24 03:37 Review of Systems ROS Statement: Those systems with pertinent positive or pertinent negative responses have been documented in the HPI. ROS Other: All systems not noted in ROS Statement are negative. Past Medical History Past Medical History: CVA/TIA, Diabetes Mellitus, GERD/Reflux, Hyperlipidemia, Hypertension, Musculoskeletal Disorder, Neurologic Disorder, Osteoarthritis (OA), Skin Disorder, Thyroid Disorder Additional Past Medical History / Comment(s): TIA yrs. ago, Parkinson's, CHRONIC BACK PAIN, PSORIASIS, History of Any Multi-Drug Resistant Organisms: None Reported Past Surgical History: Breast Surgery, Cholecystectomy, Hysterectomy, Orthopedic Surgery Additional Past Surgical History / Comment(s): rotator cuff . arthroscopic rt knee. carpal tunnel britney. A&P REPAIR. BREAST BX. RT SIDE. TMJ SURG. Past Anesthesia/Blood Transfusion Reactions: Motion Sickness Past Psychological History: Anxiety Smoking Status: Never smoker Past Alcohol Use History: None Reported Past Drug Use History: None Reported - Past Family History Father Family Medical History: Cancer Additional Family Medical History / Comment(s): FATHER COLON CANCER General Exam - General Exam Comments Initial Comments: PHYSICAL EXAM: General Impression: Alert and oriented x1/4, not in acute distress, tremulous, smells of urine HEENT: Normocephalic atraumatic, extra-ocular movements intact, pupils equal and reactive to light bilaterally, dry mucous membranes Cardiovascular: Heart regular rate and rhythm Chest: Able to complete full sentences, no retractions, no tachypnea Abdomen: abdomen soft, non-tender, non-distended, no organomegaly Musculoskeletal: Pulses present and equal in all extremities, no peripheral edema Motor: no focal deficits noted Neurological: CN II-XII grossly intact, no focal motor or sensory deficits noted Skin: Intact with no visualized rashes Psych: Normal affect and mood Limitations: altered mental status Course Vital Signs 04/24/24 03:32 Temperature 100.1 F H Pulse Rate 92 Respiratory 18 Rate O2 Sat by Pulse 92 L Oximetry EKG Findings - EKG Comments: EKG Findings:: My EKG interpretation: Ventricular rate 114, sinus tachycardia, period of 175, QRS 1, QTc 411. No CA prolongation, no QTC prolongation, no ST or T-wave changes noted. Interpretation limited due to significant artifact. Co mpared to EKG from March 11, 2024 showing similar findings. Overall this EKG seemingly unremarkable Medical Decision Making - Medical Decision Making Was pt. sent in by a medical professional or institution (, PA, [employer], urgent care, hospital, or shelter...) When possible be specific @ -No Did you speak to anyone other than the patient for history (EMS, parent, family, police, friend...)? What history was obtained from this source @ -EMS as described above. More history obtained from family member states that she is weak and he would like her to be placed Did you review nursing and triage notes (agree or disagree)? Why? @ -I reviewed and agree with nursing and triage notes Were old charts reviewed (outside hosp., previous admission, EMS record, old EKG, old radiological studies, urgent care reports/EKG's, shelter records)? Report findings @ -No old charts were reviewed Differential Diagnosis (chest pain, altered mental status, abdominal pain women, abdominal pain men, vaginal bleeding, musculoskeletal, weakness, fever, dyspnea, syncope, headache, dizziness, GI bleed, back pain, seizure, CVA, palpatations, mental health)? @ -Differential Weakness: Hypoglycemia, shock, sepsis, hyponatremia, anemia, infection, CT, ETOH, adverse medicine reaction, overdose, stroke, this is not meant to be an all-inclusive list. EKG interpreted by me (3pts min.). @ -See above X-rays interpreted by me (1pt min.). @ -None done CT interpreted by me (1pt min.). @ -CT brain shows no acute processes U/S interpreted by me (1pt. min.). @ -None done What testing was considered but not performed or refused? (CT, X-rays, U/S, la bs)? Why? @ -None What meds were considered but not given or refused? Why? @ -None Was smoking cessation discussed for >3mins.? @ -No Were there social determinants of health that impacted care today? How? (Homelessness, low income, unemployed, alcoholism, drug addiction, transportation, low edu. Level, literacy, decrease access to med. care, group home, rehab)? @ -Social situation Was there de-escalation of care discussed even if they declined (Discuss DNR or withdrawal of care, Hospice)? DNR status @ -No What co-morbidities impacted this encounter? (DM, HTN, Smoking, COPD, CAD, Cancer, CVA, ARF, Chemo, Hep., AIDS, mental health diagnosis, sleep apnea, morbid obesity)? @ -History of stroke Was patient admitted / discharged? Hospital course, mention meds given and route, prescriptions, significant lab abnormalities, going to OR and other pertinent info. @ -78-year-old female brought to the emergency department for weakness. Patient has been seemingly more weak over the last couple days. is allegedly having difficulty caring for patient at home. V vital signs shows low-grade temperature. Rest of vital signs are within acceptable limits. Laboratory evaluation obtained. CBC is negative. Metabolic panel shows mild lactic acidosis of 2.2. Dehydration with a BUN of 24 and creatinine of 0.77. Rest of labs within acceptable limits. Viral testing is negative. CT brain is unremarkable. Patient will be admitted for IV hydration and social work consultation Did you discuss the management of the patient with other professionals (professionals i.e. , PA, [employer], lab, RT, psych nurse, social security benefits interviewer, hat band attacher, teacher, armored vehicle officer, piano case maker)? Give summary @ -Case discussed with Dr. Banuelos for admission Was critical care preformed (if so, how long)? @ -No Undiagnosed new problem with uncertain prognosis? @ -No Drug Therapy requiring intensive monitoring for toxicity (Heparin, Nitro, Insulin, Cardizem)? @ -No Were any procedures done? @ -No Diagnosis/symptom? Acute, or Chronic, or Acute on Chronic? Uncomplicated (without systemic symptoms) or Complicated (systemic symptoms)? @ -Weakness, dehydration Side effects of treatment? @ -No Exacerbation, Progression, or Severe Exacerbation? @ -No Poses a threat to life or bodily function? How? (Chest pain, USA, CT, pneumonia, PE, COPD, DKA, ARF, appy, cholecystitis, CVA, Diverticulitis, Homicidal, Kendra cidal, threat to staff... and all critical care pts) @ -yes - Lab Data Result diagrams: 04/24/24 04:00 04/24/24 04:00 Lab Results 04/24/24 04/24/24 04/24/24 Range/Units 03:40 04:00 04:00 WBC 9.7 (3.8-10.6) k/uL RBC 4.50 (3.80-5.40) m/uL Hgb 13.1 (11.4-16.0) gm/dL Hct 40.9 (34.0-46.0) % MCV 91.0 (80.0-100.0) fL MCH 29.2 (25.0-35.0) pg MCHC 32.1 (31.0-37.0) g/dL RDW 13.1 (11.5-15.5) % Plt Count 273 (150-450) k/uL MPV 7.3 Neutrophils % 78 % Lymphocytes % 11 % Monocytes % 6 % Eosinophils % 2 % Basophils % 1 % Neutrophils # 7.6 (1.3-7.7) k/uL Lymphocytes # 1.0 (1.0-4.8) k/uL Monocytes # 0.6 (0-1.0) k/uL Eosinophils # 0.2 (0-0.7) k/uL Basophils # 0.1 (0-0.2) k/uL Hypochromasia Slight Sodium (137-145) mmol/L Potassium (3.5-5.1) mmol/L Chloride (98-107) mmol/L Carbon Dioxide (22-30) mmol/L Anion Gap mmol/L BUN (7-17) mg/dL Creatinine (0.52-1.04) mg/dL Est GFR (CKD-EPI)AfAm (>60 ml/min/1.73 sqM) Est GFR (CKD-EPI)NonAf (>60 ml/min/1.73 sqM) Glucose (74-99) mg/dL Plasma Lactic Acid Hammad (0.7-2.0) mmol/L Calcium (8.4-10.2) mg/dL Magnesium (1.6-2.3) mg/dL Total Bilirubin (0.2-1.3) mg/dL AST (14-36) U/L ALT (4-34) U/L Alkaline Phosphatase (38-126) U/L Troponin I (0.000-0.034) ng/mL Total Protein (6.3-8.2) g/dL Albumin (3.5-5.0) g/dL Urine Color Colorless Urine Appearance Clear (Clear) Urine pH 5.5 (5.0-8.0) Ur Specific [place] 1.031 (1.001-1.035) Urine Protein Negative (Negative) Urine Glucose (UA) 4+ H (Negative) Urine Ketones Negative (Negative) Urine Blood Trace H (Negative) Urine Nitrite Negative (Negative) Urine Bilirubin Negative (Negative) Urine Urobilinogen <2.0 (<2.0) mg/dL Ur Leukocyte Esterase Negative (Negative) Urine RBC <1 (0-5) /hpf Urine WBC 1 (0-5) /hpf Ur Squamous Epith Cells <1 (0-4) /hpf Urine Bacteria Rare H (None) /hpf Urine Mucus Rare H (None) /hpf Influenza Type A (PCR) Not Detected (Not Detectd) Influenza Type B (PCR) Not Detected (Not Detectd) RSV (PCR) Not Detected (Not Detectd) SARS-CoV-2 (PCR) Not Detected (Not Detectd) 04/24/24 04/24/24 04/24/24 Range/Units 04:00 04:00 04:00 WBC (3.8-10.6) k/uL RBC (3.80-5.40) m/uL Hgb (11.4-16.0) gm/dL Hct (34.0-46.0) % MCV (80.0-100.0) fL MCH (25.0-35.0) pg MCHC (31.0-37.0) g/dL RDW (11.5-15.5) % Plt Count (150-450) k/uL MPV Neutrophils % % Lymphocytes % % Monocytes % % Eosinophils % % Basophils % % Neutrophils # (1.3-7.7) k/uL Lymphocytes # (1.0-4.8) k/uL Monocytes # (0-1.0) k/uL Eosinophils # (0-0.7) k/uL Basophils # (0-0.2) k/uL Hypochromasia Sodium 139 (137-145) mmol/L Potassium 4.9 (3.5-5.1) mmol/L Chloride 103 (98-107) mmol/L Carbon Dioxide 28 (22-30) mmol/L Anion Gap 8 mmol/L BUN 24 H (7-17) mg/dL Creatinine 0.77 (0.52-1.04) mg/dL Est GFR (CKD-EPI)AfAm 86 (>60 ml/min/1.73 sqM) Est GFR (CKD-EPI)NonAf 74 (>60 ml/min/1.73 sqM) Glucose 178 H (74-99) mg/dL Plasma Lactic Acid Hammad 2.2 H* (0.7-2.0) mmol/L Calcium 9.9 (8.4-10.2) mg/dL Magnesium 2.1 (1.6-2.3) mg/dL Total Bilirubin 1.1 (0.2-1.3) mg/dL AST 34 (14-36) U/L ALT 26 (4-34) U/L Alkaline Phosphatase 112 (38-126) U/L Troponin I <0.012 (0.000-0.034) ng/mL Total Protein 7.4 (6.3-8.2) g/dL Albumin 4.1 (3.5-5.0) g/dL Urine Color Urine Appearance (Clear) Urine pH (5.0-8.0) Ur Specific [place] (1.001-1.035) Urine Protein (Negative) Urine Glucose (UA) (Negative) Urine Ketones (Negative) Urine Blood (Negative) Urine Nitrite (Negative) Urine Bilirubin (Negative) Urine Urobilinogen (<2.0) mg/dL Ur Leukocyte Esterase (Negative) Urine RBC (0-5) /hpf Urine WBC (0-5) /hpf Ur Squamous Epith Cells (0-4) /hpf Urine Bacteria (None) /hpf Urine Mucus (None) /hpf Influenza Type A (PCR) (Not Detectd) Influenza Type B (PCR) (Not Detectd) RSV (PCR) (Not Detectd) SARS-CoV-2 (PCR) (Not Detectd) Disposition Clinical Impression: Dehydration, Gravely disabled Disposition: ADMITTED IP TO THIS [facility] Condition: Fair Referrals: Byron Banuelos MD [Primary Care Provider] - 1-2 days Decision Time: 06:16
[2024-04-24 04:21] LABS: Basophils # (A) 0.1 k/uL (0-0.2); Basophils % (A) 1 %; Eosinophils # (A) 0.2 k/uL (0-0.7); Eosinophils % (A) 2 %; HCT 40.9 % (34.0-46.0); HGB 13.1 gm/dL (11.4-16.0); Hypochromasia Slight; Lymphocytes % (A) 11 %; MCH 29.2 pg (25.0-35.0); MCHC 32.1 g/dL (31.0-37.0); Mean Platelet Volume 7.3; Monocytes # (A) 0.6 k/uL (0-1.0); Monocytes % (A) 6 %; Neutrophils # (A) 7.6 k/uL (1.3-7.7); Neutrophils % (A) 78 %; Platelet Count 273 k/uL (150-450); RDW 13.1 % (11.5-15.5); WBC 9.7 k/uL (3.8-10.6)
[2024-04-24 04:25] LABS: Appearance,Urine Clear (Clear); Bacteria,Urine Rare /hpf; Bilirubin,Urine Negative (Negative); Blood,Urine Trace (Negative); Color,Urine Colorless; Glucose,Urine (UA) 4+ (Negative); Ketones,Urine Negative (Negative); Leukocyte Esterase,Urine Negative (Negative); Mucus,Urine Rare /hpf; Nitrite,Urine Negative (Negative); PH, Urine 5.5 (5.0-8.0); Protein,Urine Negative (Negative); RBC,Urine <1 /hpf (0-5); Specific Gravity,Urine 1.031 (1.001-1.035); Squamous Epithelial Cell,Urine <1 /hpf (0-4); Urobilinogen,Urine <2.0 mg/dL (<2.0); WBC,Urine 1 /hpf (0-5)
[2024-04-24 04:40] LABS: ALT 26 U/L (4-34); African American GFR (CKD) 86 (>60 ml/min/1.73 sqM); Albumin 4.1 g/dL (3.5-5.0); Anion Gap 8 mmol/L; Blood Urea Nitrogen 24 mg/dL (7-17); Calcium 9.9 mg/dL (8.4-10.2); Carbon Dioxide 28 mmol/L (22-30); Chloride 103 mmol/L (98-107); Glucose 178 mg/dL (74-99); Non-African American GFR(CKD) 74 (>60 ml/min/1.73 sqM); Sodium 139 mmol/L (137-145); Total Bilirubin 1.1 mg/dL (0.2-1.3); Total Protein 7.4 g/dL (6.3-8.2)
[2024-04-24 04:48] LABS: AST 34 U/L (14-36); Alkaline Phosphatase 112 U/L (38-126); Magnesium 2.1 mg/dL (1.6-2.3); Potassium 4.9 mmol/L (3.5-5.1)
[2024-04-24] MEDS ORDERED: NALOXONE 0.4 MG/ML 1 ML VIAL IV PRN (06:12)
[2024-04-24] MEDS: SODIUM CHLORIDE 0.9% 1,000 ML IV SCH (06:38)
--- NOTE | 2024-04-24 07:36 | CT ---
EXAMINATION TYPE: CT brain wo con DATE OF EXAM: 04/24/2024 COMPARISON: 03/11/2024 HISTORY: AMS, difficulty walking, Pt has hx of dementia and parkinsons but usually ambulates herself, ams hx of dementia & parkinsons as stated by spouse. Best possible due to patient condition and diff iculty following directions. CT DLP: 1318.[address] of the brain was performed. The ventricles, basal cisterns and sulci overlying the cerebral convexities demonstrate mild enlargem ent. There is no evidence for intracranial hemorrhage or sulcal effacement. There is decreased attenuation about the periventricular white matter and deep white matter of both c erebral hemispheres, compatible with chronic small vessel ischemia. Differential diagnosis does inclu de demyelination. No mass effects are seen.No midline shift. Osseous calvarium is intact. If symptoms persist consider MRI. IMPRESSION: 1. Age related atrophic and chronic small vessel ischemic change without acute intracranial process s een at this time.
[2024-04-24] MEDS ORDERED: CYCLOBENZAPRINE 10 MG TAB PO PRN (07:55)
[2024-04-24] MEDS: AZITHROMYCIN 500 MG in SODIUM CHLORIDE 0.9% 250 ML IVPB SCH (09:17)
[2024-04-24] MEDS: MEMANTINE 5 MG TAB PO SCH (10:08)
[2024-04-24] MEDS: ATORVASTATIN 20 MG TAB PO SCH (10:08)
[2024-04-24] MEDS: DAPAGLIFLOZIN PROPANEDIOL 10 MG TABLET PO SCH (10:08)
[2024-04-24] MEDS: FUROSEMIDE 20 MG TAB PO SCH (10:08)
[2024-04-24] MEDS: CLOPIDOGREL 75 MG TAB PO SCH (10:08)
[2024-04-24] MEDS: MEXILETINE 150 MG CAP PO SCH (10:08)
[2024-04-24] MEDS: LOSARTAN 50 MG TAB PO SCH (10:08)
[2024-04-24] MEDS: ENOXAPARIN 40 MG/0.4 ML SYRINGE SQ SCH (10:09)
--- NOTE | 2024-04-24 10:12 | P.HPIM ---
History of Present Illness H&P Date: 04/24/24 HISTORY OF PRESENT ILLNESS: 78-year-old one of my office patient with multiple medical problem who is known to have history of type 2 diabetes, severe radiculopathy of the spine, Parkinson disease, previous history of stroke, chronic history of neuropathy, chronic history of psoriasis, chronic pain syndrome, history of anemia with no recent bleed and significant history of memory loss with? Of Lewy body. She is seen at [facility] neurology clinic by neurologist for parkinsonism with seen manager civil in the past as well with blood sugar doing slightly better lately without any major hypo-/hyperglycemic episode has been using continue glucose monitor and well careful with medication specially oral hypoglycemic agent. Also patient has been treated for chronic polymyalgia rheumatica and mild arthralgia and has been on smaller dose of prednisone 2.5 mg for the last few weeks seems to do slightly better with it. She presented to the emergency department by EMS today she has been extremely confused and had significant altered mental status she get out of bed could not get back in bed has fallen several times in the last few days the hospital cannot help her to get back in bed and has been extremely difficult at home same time with her altered mental status may be very difficult to manage with going on but will not fully understand if there is any new finding at this point. At the time was seen her lactic acid was elevated she seems to have an upper respiratory symptoms with mild cough and congestion her respiratory culture including influenza RSV and SARS came back negative urine is not totally clear but not very positive white blood cell was normal. She ended up going for CAT scan of the brain shows age-related atrophy with small vessel disease without any intracranial hemorrhage or process. X-ray of the chest was ordered was not done the patient seems to have more consolidation and symptoms in both lower lung field. Also had significant tachycardia with pulse running around 120 bpm very rapid tachycardia mostly with? Of A-fib. To be hospitalized on IV antibiotic for what seems to be bilateral pneumonia should be able to repeat her COVID test again in 24 hours this is a possibility and early stage as well with her debility and current parkinsonism with a? Of Lewy body with advanced dementia patient probably would benefit from more help eventually either an assisted living or rehab with potential long-term. REVIEW OF SYSTEMS: CONSTITUTIONAL: Well-developed quite bit confused and congested not in any respiratory distress. Head and neck: Slightly congestion with low-grade lymph node in the neck area with mild congestion. EARS, NOSE, MOUTH, THROAT, and FACE: Mild pharyngitis with smaller lymph adenopathy. RESPIRATORY: Positive shortness of breath cough or wheezes. CARDIOVASCULAR: Positive PND orthopnea palpitation. GASTROINTESTINAL: Significant nausea no vomiting positive diarrhea. GENITOURINARY: Positive incontinence no hematuria or kidney stone. INTEGUMENT/BREAST: Negative for any muscular injury with mild osteoarthritis.. HEMATOLOGIC/LYMPHATIC: Negative for bleed or purpura. MUSCULOSKELTAL: Generalized arthralgia and myalgia. NEURLOGICAL: Combination of dementia and advanced parkinsonism. BEHAVIORAL/PSYCH: Negative. ENDOCRINE: Negative. PHYSICAL EXAMINATION: General Appearance: Alert, quite bit confused in no respiratory distress. Neck HEENT: Slight hyperemic throat with lymphadenopathy no thyroid enlargement. Lungs: Decreased breath sound bilaterally especially in the bases positive for rhonchi and crackles pause mild expiratory wheezes. Chest Wall: Decreased expansion with deep inspiration no tenderness and no deformity was found on exam, no costochondral pain or discomfort. Heart: Regular rate and rhythm, S1, S2 significant tachycardia with systolic murmur. Back: Symmetric, no curvature, ROM normal, no CVA tenderness. Abdomen: Soft, non-tender, bowel sounds active all four quadrants, no masses, no organomegaly. Extremities: Extremities normal, atraumatic, no cyanosis or edema. Pulses: 2+ and symmetric. Skin: Skin color, texture, tugor normal, no rashes or lesions. Neurologic: Quite confused alert cranial nerves II through XII are intact positive generalized weakness and fatigue bilaterally positive resting tremor with significant parkinsonism ASSESSMENT AND PLAN: _Altered mental status: With worsening confusion secondary to parkinsonism, dementia, metabolic encephalopathy most likely from mild hypoxia and upper respiratory infection specially bilateral pneumonia. Try to treat underlying disease. _Multiple fall with severe debility not been able to ambulate and walk will need more help her symptoms probably worsening with that current infection. _Early sign of SIRS secondary to bilateral pneumonia with elevated lactic acid hypotension and tachycardia culture will be done repeat chest x-ray the patient will be on antibiotic will consult infectious disease possible pulmonary. _Advanced dementia: Combination of parkinsonism with Lewy body and Alzheimer disease has been on Namenda Risperdal and Nuplazid. _Type 2 diabetes: Has been on Amaryl Jardiance and Mounjaro we have continued glucose monitor which her blood sugar seems to be better. _Recurrent stroke: Remain on Plavix and secondary prevention being on olmesartan and Crestor. _Hypertension: Continue olmesartan 10 mg daily will titrate dose higher if needed. _Parkinson disease with worsening complication related to parkinsonism with question of Lewy body worsening dementia and mild delusion has been on Sinemet, Nuplazid, Namenda and risperidone. _Much worsening dementia: With higher possibility for Lewy body has been seeing neurology regularly medication been adjusted and has been using risperidone and Nuplazid for complication related to her dementia with delusion and hallucination. _Hyperlipidemia: Remain on rosuvastatin 10 mg a day. _Hypothyroidism: Continue patient on levothyroxine 50 mcg daily. _GI prophylaxis: Resume Pepcid 20 mg a day. _DVT prophylaxis: She might benefit from keeping her on Lovenox 40 mg a day while she is in the hospital. _CODE STATUS: Full code. Admit patient to the inpatient service for more than 2 night stay. Past Medical History Past Medical History: CVA/TIA, Diabetes Mellitus, GERD/Reflux, Hyperlipidemia, Hypertension, Musculoskeletal Disorder, Neurologic Disorder, Osteoarthritis (OA), Skin Disorder, Thyroid Disorder Additional Past Medical History / Comment(s): TIA yrs. ago, Parkinson's, CHRONIC BACK PAIN, PSORIASIS, History of Any Multi-Drug Resistant Organisms: None Reported Past Surgical History: Breast Surgery, Cholecystectomy, Hysterectomy, Orthopedic Surgery Additional Past Surgical History / Comment(s): rotator cuff . arthroscopic rt knee. carpal tunnel britney. A&P REPAIR. BREAST BX. RT SIDE. TMJ SURG. Past Anesthesia/Blood Transfusion Reactions: Motion Sickness Past Psychological History: Anxiety Smoking Status: Never smoker Past Alcohol Use History: None Reported Past Drug Use History: None Reported - Past Family History Father Family Medical History: Cancer Additional Family Medical History / Comment(s): FATHER COLON CANCER Medications and Allergies Home Medications Medication Instructions Recorded Confirmed Type Clopidogrel [Plavix] 75 mg PO QAM 08/23/14 04/24/24 History Furosemide [Lasix] 20 mg PO Q2D 08/23/14 04/24/24 History Levothyroxine Sodium [Synthroid] 50 mcg PO HS 09/08/14 04/24/24 History Famotidine 20 mg PO HS 09/28/14 04/24/24 History Rosuvastatin [Crestor] 10 mg PO QAM 10/15/20 04/24/24 History predniSONE 2.5 mg PO W/BRKFST 10/15/20 04/24/24 History Empagliflozin [Jardiance] 25 mg PO DAILY 02/13/22 04/24/24 History Olmesartan Medoxomil 10 mg PO DAILY 02/13/22 04/24/24 History Carbidopa-Levodopa 25-100 mg 1 tab PO TID-W/MEALS 04/24/24 04/24/24 History [Sinemet 25-100] Cyclobenzaprine [Flexeril] 10 mg PO BID PRN 04/24/24 04/24/24 History Glimepiride [Amaryl] 2 mg PO AC-BID@0700,1200 PRN 04/24/24 04/24/24 History Magnesium Oxide [Mag-Ox] 400 mg PO W/SUPPER 04/24/24 04/24/24 History Memantine [Namenda] 5 mg PO BID 04/24/24 04/24/24 History Mexiletine [Mexitil] 150 mg PO BID 04/24/24 04/24/24 History Pimavanserin Tartrate [Nuplazid] 34 mg PO HS 04/24/24 04/24/24 History Tirzepatide [Mounjaro] 7.5 mg SQ TU 04/24/24 04/24/24 History risperiDONE [RisperDAL] 0.5 mg PO QAM 04/24/24 04/24/24 History risperiDONE [RisperDAL] 1 mg PO HS 04/24/24 04/24/24 History Allergies Allergy/AdvReac Type Severity Reaction Status Date / Time adhesive Allergy "RED SKIN, Verified 04/24/24 07:12 ITCHING diazepam [From Valium] Allergy Rash/Hives Verified 04/24/24 07:12 Penicillins Allergy Unknown Verified 04/24/24 07:12 Childhood codeine AdvReac Nausea & Verified 04/24/24 07:12 Vomiting morphine AdvReac "DOES NOT Verified 04/24/24 07:12 TAKE THE PAIN AWAY" oxycodone HCl [From Percodan] AdvReac Nausea & Verified 04/24/24 07:12 Vomiting oxycodone terephthalate AdvReac Nausea & Verified 04/24/24 07:12 [From Percodan] Vomiting Sulfa (Sulfonamide AdvReac Nausea & Verified 04/24/24 07:12 Antibiotics) Vomiting tape Allergy Itching Uncoded 04/24/24 07:12 steroids AdvReac Chest Pain Uncoded 04/24/24 07:12 and depression Physical Exam Vitals: Vital Signs Temp Pulse Resp BP Pulse Ox 04/24/24 06:41 108 H 18 113/60 95 04/24/24 03:32 100.1 F H 92 18 92 L Intake and Output 04/23/24 04/24/24 04/24/24 22:59 06:59 14:59 Other: Weight 63.503 kg Results CBC & Chem 7: 04/24/24 04:00 04/24/24 04:00 Labs: Abnormal Lab Results - Last 24 Hours (Table) 04/24/24 04/24/24 04/24/24 Range/Units 04:00 04:00 04:00 BUN 24 H (7-17) mg/dL Glucose 178 H (74-99) mg/dL Plasma Lactic Acid Hammad 2.2 H* (0.7-2.0) mmol/L Urine Glucose (UA) 4+ H (Negative) Urine Blood Trace H (Negative) Urine Bacteria Rare H (None) /hpf Urine Mucus Rare H (None) /hpf
--- NOTE | 2024-04-24 11:03 | XR ---
EXAMINATION TYPE: XR chest 2V DATE OF EXAM: 04/24/2024 COMPARISON: 03/11/2014 HISTORY: 78-year-old female altered mental status, confusion, aspiration TECHNIQUE: AP and lateral views FINDINGS: Patient is slightly rotated towards the left. Lung volumes are low. Heart borderline in size. Interst itial densities persist by appeared slightly increased. Patchy bibasilar opacities similar to slightl y increased as well. No pleural effusion. Bilateral rotator cuff arthropathy. IMPRESSION: Hypoventilatory changes but with ongoing interstitial opacities. These interstitial densities as well as patchy bibasilar densities have slightly worsened in the interval.
[2024-04-24] MEDS ORDERED: GLIMEPIRIDE 2 MG TAB PO PRN (12:00)
--- NOTE | 2024-04-24 12:20 | P.CNNES ---
History of Present Illness Consult date: 04/24/24 Requesting physician: Byron Banuelos Reason for Consult: worsening dementia and parkinsonism History of Present Illness: Is a 78-year-old woman with history of Parkinson disease, dementia and multiple other medical issues who presents to the emergency department because of confusion falls and needs placement. States she lives with her . History is obtained from medical record. Per the primary team it seems that the patient was evaluated at [facility] neurology clinic for Parkinson's and I am reading the note and it seems that she has history of memory loss of Lewy body. Patient is unable to provide history for me. She denies of any headache, any worsening weakness. Per nursing staff seems patient is here for placement to a assisted facility. Is on sentiment 25-100 1 tablet 3 times daily. Some of the workup during this hospital visit consisted of: CBC with differential is unremarkable Initial plasma lactic acid venous 2.2, glucose is 178, BUN is 24 otherwise rest of the workup is unremarkable Urinalysis is negative for any underlying infection Influenza A/B/RSV/COVID [address] head is reported as age-related atrophy and chronic small vessel ischemic change without acute intracranial process seen at this time. I Reviewed the CT and I agree there is no acute or subacute ischemia. Review of Systems Limited. Past Medical History Past Medical History: CVA/TIA, Diabetes Mellitus, GERD/Reflux, Hyperlipidemia, Hypertension, Musculoskeletal Disorder, Neurologic Disorder, Osteoarthritis (OA), Skin Disorder, Thyroid Disorder Additional Past Medical History / Comment(s): TIA yrs. ago, Parkinson's, CHRONIC BACK PAIN, PSORIASIS, History of Any Multi-Drug Resistant Organisms: None Reported Past Surgical History: Breast Surgery, Cholecystectomy, Hysterectomy, Orthopedic Surgery Additional Past Surgical History / Comment(s): rotator cuff . arthroscopic rt knee. carpal tunnel britney. A&P REPAIR. BREAST BX. RT SIDE. TMJ SURG. Past Anesthesia/Blood Transfusion Reactions: Motion Sickness Past Psychological History: Anxiety Smoking Status: Never smoker Past Alcohol Use History: None Reported Past Drug Use History: None Reported - Past Family History Father Family Medical History: Cancer Additional Family Medical History / Comment(s): FATHER COLON CANCER Medications and Allergies Home Medications Medication Instructions Recorded Confirmed Type Clopidogrel [Plavix] 75 mg PO QAM 08/23/14 04/24/24 History Furosemide [Lasix] 20 mg PO Q2D 08/23/14 04/24/24 History Levothyroxine Sodium [Synthroid] 50 mcg PO HS 09/08/14 04/24/24 History Famotidine 20 mg PO HS 09/28/14 04/24/24 History Rosuvastatin [Crestor] 10 mg PO QAM 10/15/20 04/24/24 History predniSONE 2.5 mg PO W/BRKFST 10/15/20 04/24/24 History Empagliflozin [Jardiance] 25 mg PO DAILY 02/13/22 04/24/24 History Olmesartan Medoxomil 10 mg PO DAILY 02/13/22 04/24/24 History Carbidopa-Levodopa 25-100 mg 1 tab PO TID-W/MEALS 04/24/24 04/24/24 History [Sinemet 25-100] Cyclobenzaprine [Flexeril] 10 mg PO BID PRN 04/24/24 04/24/24 History Glimepiride [Amaryl] 2 mg PO AC-BID@0700,1200 PRN 04/24/24 04/24/24 History Magnesium Oxide [Mag-Ox] 400 mg PO W/SUPPER 04/24/24 04/24/24 History Memantine [Namenda] 5 mg PO BID 04/24/24 04/24/24 History Mexiletine [Mexitil] 150 mg PO BID 04/24/24 04/24/24 History Pimavanserin Tartrate [Nuplazid] 34 mg PO HS 04/24/24 04/24/24 History Tirzepatide [Mounjaro] 7.5 mg SQ TU 04/24/24 04/24/24 History risperiDONE [RisperDAL] 0.5 mg PO QAM 04/24/24 04/24/24 History risperiDONE [RisperDAL] 1 mg PO HS 04/24/24 04/24/24 History Allergies Allergy/AdvReac Type Severity Reaction Status Date / Time adhesive Allergy "RED SKIN, Verified 04/24/24 07:12 ITCHING diazepam [From Valium] Allergy Rash/Hives Verified 04/24/24 07:12 Penicillins Allergy Unknown Verified 04/24/24 07:12 Childhood codeine AdvReac Nausea & Verified 04/24/24 07:12 Vomiting morphine AdvReac "DOES NOT Verified 04/24/24 07:12 TAKE THE PAIN AWAY" oxycodone HCl [From Percodan] AdvReac Nausea & Verified 04/24/24 07:12 Vomiting oxycodone terephthalate AdvReac Nausea & Verified 04/24/24 07:12 [From Percodan] Vomiting Sulfa (Sulfonamide AdvReac Nausea & Verified 04/24/24 07:12 Antibiotics) Vomiting tape Allergy Itching Uncoded 04/24/24 07:12 steroids AdvReac Chest Pain Uncoded 04/24/24 07:12 and depression Physical Examination - Vital Signs Vital Signs: Vital Signs Temp Pulse Resp BP Pulse Ox 04/24/24 07:30 98 F 113/80 04/24/24 07:00 113/80 04/24/24 06:41 108 H 18 113/60 95 04/24/24 04:30 112/83 04/24/24 04:04 11283 04/24/24 03:32 100.1 F H 92 18 92 L Intake and Output 04/23/24 04/24/24 04/24/24 22:59 06:59 14:59 Other: Weight 63.503 kg General: Lying in bed and does not appear in acute distress. HENT: Supple neck. Neuro: Limited. Patient is awake oriented to self and stated she is in the hospital. She is able to name few objects correctly such as pen watch. Language and states she has pain in bilateral shoulders neck lower back which is chronic and is able to lift up arms above gravity and appears symmetrical. She is only able to lift it up 90 degrees from bed. While lower extremities she briefly raise bilateral lower extremities proximally above gravity. But does not appear to be aphasic from limitation Pupils are round equal about 3 to 4 mm bilaterally and reactive to light. Unable to assess the visual child or extraocular movement because of her cooperation. No facial weakness. No dysarthria Motor: Limited because of her overall cooperation. She states that she has neck and shoulder and entire back pain which is chronic. She is able to briefly raise bilateral upper extremity above gravity and appears about 90 degrees while lower extremities she just briefly lifted up bilateral extremity proximally above gravity. Appeared normal tone and bulk Cerebellar, reflexes and sensations unable to assess neuro cooperation Plantars are mute bilaterally Results - Laboratory Findings CBC and BMP: 04/24/24 04:00 04/24/24 04:00 Abnormal Lab Findings: Abnormal Labs 04/24/24 04/24/24 04/24/24 04:00 04:00 04:00 BUN 24 H Glucose 178 H Plasma Lactic Acid Hammad 2.2 H* Urine Glucose (UA) 4+ H Urine Blood Trace H Urine Bacteria Rare H Urine Mucus Rare H Assessment and Plan Assessment: This is a 78-year-old woman with history of Parkinson disease, dementia and it is reported of ?Lewy body per the primary team's note and she was evaluated by [facility] neurology team as an outpatient for her Parkinson's and it seems that she is having progressive worsening of her memory and Parkinson's with falls recently. She needs placement since it seems that her is unable to take care of her. Her lactic acid is elevated on presentation. Worsening of her dementia, generalized weakness and falls is due to her progressive condition of Parkinson's disease Underlying history of Parkinson disease and patient was evaluated at [facility] that is reported by the primary team's note Underlying history of dementia and is reported per of? Lewy type Chronic history of neuropathy Diabetes mellitus History of severe radiculopathy Chronic history of psoriasis Chronic pain syndrome Plan: CT of the head is unremarkable for any acute process I ordered a routine EEG, TSH, vitamin B12, folate, ammonia level Patient is continued on her home dose of sentiment [id number], 1 tablet tid PT, OT and TRAFFIC SUPERINTENDENT are consulted Will defer the rest of the medical management to primary team Patient is pending placement Upon discharge patient to follow-up with neurology team over [facility] in 2 to 3 weeks The plan discussed with the patient nurse Thank you for the consultation. ADDENDUM: Preliminary EEG: Mild encephalopathy. There is suspicious rare discharges stemming left temporal > bilateral central which can increase risk for seizure. No seizure is noted during this study. Therefore, probable her confusion is due to new onset seizure. I started the patient on Vimpat 50mg bid (not Keppra since can cause agitation/irritability). Dr. Zayas will resume neurology service tomorrow A.M. Time with Patient: Greater than 30
[2024-04-24 14:10] LABS: Glucose,Whole Blood 152 mg/dL (70-110)
[2024-04-24] MEDS: CARBIDOPA-LEVODOPA 25-100 MG 1 EACH TAB PO SCH (14:26)
[2024-04-24] MEDS: INSULIN ASPART (NovoLOG) 100 UNIT/ML VIAL SQ SCH ×2 (14:26→14:42)
[2024-04-24 17:07] LABS: Glucose,Whole Blood 133 mg/dL (70-110)
[2024-04-24] MEDS: MAGNESIUM OXIDE 400 MG TAB PO SCH (17:16)
[2024-04-24 21:44] LABS: Glucose,Whole Blood 118 mg/dL (70-110)
[2024-04-24] MEDS: FAMOTIDINE 20 MG TAB PO SCH (22:31)
[2024-04-24] MEDS: Pimavanserin Tartrate [Nuplazid] 34 MG Capsule PO SCH (22:31)
[2024-04-24] MEDS: Lacosamide IV (ages 17+ yrs) 200 MG/20 ML ML IVP SCH (22:31)
[2024-04-24] MEDS: LEVOTHYROXINE 50 MCG TAB PO SCH (22:31)
--- NOTE | 2024-04-24 23:31 | EEG ---
ELECTROENCEPHALOGRAM REPORT CLINICAL HISTORY: This is a 78-year-old woman with history of Parkinson's, dementia, who presents because of worsening confusion. The video EEG is obtained to evaluate for seizure epileptiform activity. RELEVANT MEDICATION: Flexeril. EEG TYPE: A routine 21-channel EEG with video using the 10/20 electrode placement system. DESCRIPTION: Wakefulness is only obtained. During awake state, the background consists of low to moderate voltage of 7 to 8 hertz activity and at times intermixed with theta and delta activity. There was no physiological stage 2 sleep architecture. There is no focal slowing. Interictal and ictal, there appears to be suspicious rare spike slow waves over left temporal and sometimes sharp and slow waves over bilateral central. There is no seizure noted during the study. ACTIVATION PROCEDURE: Photic stimulation and hyperventilation are not performed. CLINICAL INTERPRETATION: This is an abnormal routine EEG. The background slowing is suggestive of mild encephalopathy. There appears to be suspicious rare epileptiform discharges stemming left temporal more than bilateral central that can increase risk for seizure. No seizures noted during the study. Clinical correlation is recommended. MMODL / IJN: [id number] / RICKY
[2024-04-25 06:06] LABS: Glucose,Whole Blood 96 mg/dL (70-110)
[2024-04-25] MEDS: PANTOPRAZOLE 40 MG TABLET PO SCH (06:44)
[2024-04-25] MEDS: predniSONE 2.5 MG TAB PO SCH (06:44)
[2024-04-25 09:36] LABS: HGB 12.3 g/dL (12.0-15.0); MCH 28.2 pg (27.0-32.0); MCHC 31.5 g/dL (32.0-37.0); MCV 89.4 FL (80.0-97.0); Mean Platelet Volume 10.4 FL (9.5-12.2); NRBC Per 100 WBC 0 X 10*3/uL (0.00-0.01); Platelet Count 268 X 10*3/uL (140-440); RBC 4.36 X 10*6/uL (4.10-5.20); RDW 13.3 % (11.5-14.5); WBC 8.24 X 10*3/uL (4.50-10.00)
[2024-04-25 11:57] LABS: Glucose,Whole Blood 235 mg/dL (70-110)
[2024-04-25 12:14] LABS: ALT 20 U/L (8-44); AST 35 U/L (13-35); Albumin 3.6 g/dL (3.8-4.9); Albumin/Globulin Ratio 1.33 Ratio (1.60-3.17); Alkaline Phosphatase 114 U/L (41-126); BUN/Creat Ratio 21.86 Ratio (12.00-20.00); Blood Urea Nitrogen 15.3 mg/dL (9.0-27.0); Calcium 9.1 mg/dL (8.7-10.3); Carbon Dioxide 22.8 mmol/L (21.6-31.8); Chloride 102 mmol/L (96-109); Globulin 2.7 g/dL (1.6-3.3); Glucose 104 mg/dL (70-110); Sodium 139 mmol/L (135-145); Total Bilirubin 0.8 mg/dL (0.3-1.2); Total Protein 6.3 g/dL (6.2-8.2)
--- NOTE | 2024-04-25 14:32 | P.PN ---
Subjective Progress Note Date: 04/25/24 Interval History: 78-year-old one of my office patient with multiple medical problem who is known to have history of type 2 diabetes, severe radiculopathy of the spine, Parkinson disease, previous history of stroke, chronic history of neuropathy, chronic history of psoriasis, chronic pain syndrome, history of anemia with no recent bleed and significant history of memory loss with? Of Lewy body. She is seen at [facility] neurology clinic by neurologist for parkinsonism with seen legislators in the past as well with blood sugar doing slightly better lately without any major hypo-/hyperglycemic episode has been using continue glucose monitor and well careful with medication specially oral hypoglycemic agent. Also patient has been treated for chronic polymyalgia rheumatica and mild arthralgia and has been on smaller dose of prednisone 2.5 mg for the last few weeks seems to do slightly better with it. She presented to the emergency department by EMS today she has been extremely confused and had significant altered mental status she get out of bed could not get back in bed has fallen several times in the last few days the hospital cannot help her to get back in bed and has been extremely difficult at home same time with her altered mental status may be very difficult to manage with going on but will not fully understand if there is any new finding at this point. At the time was seen her lactic acid was elevated she seems to have an upper respiratory symptoms with mild cough and congestion her respiratory culture including influenza RSV and SARS came back negative urine is not totally clear but not very positive white blood cell was normal. She ended up going for CAT scan of the brain shows age-related atrophy with small vessel disease without any intracranial hemorrhage or process. X-ray of the chest was ordered was not done the patient seems to have more consolidation and symptoms in both lower lung field. Also had significant tachycardia with pulse running around 120 bpm very rapid tachycardia mostly with? Of A-fib. To be hospitalized on IV ant ibiotic for what seems to be bilateral pneumonia should be able to repeat her COVID test again in 24 hours this is a possibility and early stage as well with her debility and current parkinsonism with a? Of Lewy body with advanced dementia patient probably would benefit from more help eventually either an assisted living or rehab with potential long-term. 04/25/2024--patient was seen and examined today. Son at bedside. Patient still confused. Complaining of abdominal pain which is chronic. Patient is afebrile, heart rate slightly of 103, respiratory rate 18, blood pressure 138/85, satura ting 97% on room air. CBC stable. BMP unremarkable. Neurology consulted and following, recommended to continue Sinemet 24077, 1 tablet 3 times daily. Patient is pending placement. EEG showed mild encephalopathy. Chest x-ray showed mild hypoventilatory changes, with ongoing interstitial opacities, interval worsening. Currently on Rocephin and azithromycin for pneumonia. Assessment and plan: _Altered mental status: With worsening confusion secondary to parkinsonism, dementia, metabolic encephalopathy most likely from mild hypoxia and upper respiratory infection suspect viral. EEG showed mild encephalopathy. _Multiple fall with severe debility not been able to ambulate and walk will need more help her symptoms probably worsening with that current infection. _Early sign of SIRS with elevated lactic acid hypotension and tachycardiasuspect pneumonia.--chest x-ray showed hypoventilatory changes, ongoing interstitial opacities--interval worsening, continue Rocephin and azithromycin. _Advanced dementia: Combination of parkinsonism with Lewy body and Alzheimer disease has been on Namenda Risperdal and Nuplazid. _Type 2 diabetes: Has been on Amaryl Jardiance and Mounjaro we have continued glucose monitor which her blood sugar seems to be better. _Recurrent stroke: Remain on Plavix and secondary prevention being on olmesartan and Crestor. _Hypertension: Continue olmesartan 10 mg daily will titrate dose higher if needed. _Parkinson disease with worsening complication related to parkinsonism with question of Lewy body worsening dementia and mild delusion has been on Sinemet, Nuplazid, Namenda and risperidone. _Much worsening dementia: With higher possibility for Lewy body has been seeing neurology regularly medication been adjusted and has been using risperidone and Nuplazid for complication related to her dementia with delusion and hallucination. _Hyperlipidemia: Remain on rosuvastatin 10 mg a day. _Hypothyroidism: Continue patient on levothyroxine 50 mcg daily. _GI prophylaxis: Resume Pepcid 20 mg a day. _DVT prophylaxis: Subcutaneous Lovenox _CODE STATUS: Full code. PHYSICAL EXAMINATION: GENERAL: The patient is A&O x2, confused HEENT: EOMI, Sclerae anicteric, Moist Mucous membranes Neck: Supple, Non tender, No JVD PULMONARY: Equal breath souds B/L, No wheezing, No crackles. CARDIOVASCULAR: S1, S2 present. No murmurs, rubs, or gallops. ABDOMEN: Soft, nontender, nondistended, normoactive bowel sounds. No guarding or rebound tenderness. MUSCULOSKELETAL: No edema, No cyanosis. No clubbing. Normal ROM. Intact peripheral pulses. EXTREMITIES: No cyanosis, clubbing, or pedal edema. NEUROLOGICAL: CN 2-12 grossly intact. No FND . Resting tremor. Skin: No Rash REVIEW OF SYSTEMS: CONSTITUTIONAL: No fever or chills. CARDIOVASCULAR: No chest pain, palpitations or syncope. PULMONARY: No shortness of breath, no cough, sore throat. GASTROINTESTINAL: No nausea, vomiting, diarrhea, abdominal pain. : No Dysuria, urgency, frequency. Extremities: No edema. NEUROLOGICAL: No headaches, no weakness, or numbness Dictation was produced using Stream dictation software. please excuse any grammatical, word or spelling errors. Objective - Vital Signs Vital signs: Vital Signs Temp 98.3 F 04/25/24 07:02 Pulse 103 H 04/25/24 07:02 Resp 18 04/25/24 07:02 BP 138/85 04/25/24 07:02 Pulse Ox 97 04/25/24 07:02 FiO2 Intake & Output 04/24/24 04/25/24 04/25/24 18:59 06:59 18:59 Output Total 800 Balance -800 Weight 63.503 kg Output: Urine 800 Other: Voiding Method Diaper - Labs CBC & Chem 7: 04/25/24 06:03 04/25/24 06:03 Labs: Abnormal Lab Results - Last 24 Hours (Table) 04/24/24 04/24/24 04/25/24 Range/Units 17:06 21:43 06:03 MCHC 31.5 L (32.0-37.0) g/dL Anion Gap (4.00-12.00) mmol/L BUN/Creatinine Ratio (12.00-20.00) Ratio POC Glucose (mg/dL) 133 H 118 H (70-110) mg/dL Albumin (3.8-4.9) g/dL Albumin/Globulin Ratio (1.60-3.17) Ratio 04/25/24 04/25/24 Range/Units 06:03 11:55 MCHC (32.0-37.0) g/dL Anion Gap 14.20 H (4.00-12.00) mmol/L BUN/Creatinine Ratio 21.86 H (12.00-20.00) Ratio POC Glucose (mg/dL) 235 H (70-110) mg/dL Albumin 3.6 L (3.8-4.9) g/dL Albumin/Globulin Ratio 1.33 L (1.60-3.17) Ratio
[2024-04-25] MEDS: ALPRAZolam 0.25 MG TAB PO PRN (14:37)
[2024-04-25 17:06] LABS: Glucose,Whole Blood 84 mg/dL (70-110)
[2024-04-25 19:39] LABS: Glucose,Whole Blood 86 mg/dL (70-110)
[2024-04-26 05:50] LABS: Glucose,Whole Blood 80 mg/dL (70-110)
[2024-04-26 11:46] LABS: Glucose,Whole Blood 131 mg/dL (70-110)
--- NOTE | 2024-04-26 12:11 | P.PN ---
Subjective Progress Note Date: 04/25/24 Patient was initially seen by Dr. Constantine Silva. Please refer to his note for details. Patient is a 78-year-old female with history of Parkinson's disease, dementia, DM, Chronic back pain, who presents because of worsening confusion and parkinsonian symptoms and needs placement. EEG was performed and Dr. Silva felt that patient has discharges stemming from the left temporal region so he started the patient on Vimpat. No hx of back surgery. Patient was seen for a follow-up. Patient's was present by the bedside. Patient at present appears delirious, confused, wants to go home or sometimes she sees "I want to go potty". Patient's family mentions that on patient went to [place] [facility], and was noted to have low blood pressure running around systolic send 67 and 87 range. An EKG was done. On , she was walking, up and around, went to bed at 10 PM. On Saturday, yesterday, at 2 AM she called her daughter and was bent over on the bed not able to move her legs. Patient's tried to move and she could not. He sat her up and at that time, she was babbling. They called EMS and patient was brought to the hospital. Patient does have history of dementia, occasionally she gets combative. Some of the workup during this hospital visit consisted of: CBC with differential is unremarkable Initial plasma lactic acid venous 2.2, glucose is 178, BUN is 24 otherwise rest of the workup is unremarkable Urinalysis is negative for any underlying infection Influenza A/B/RSV/COVID [address] head is reported as age-related atrophy and chronic small vessel ischemic change without acute intracranial process seen at this time. I Reviewed the CT and I agree there is no acute or subacute ischemia. Objective - Vital Signs Vital signs: Vital Signs Temp 98.3 F 04/25/24 07:02 Pulse 100 04/25/24 14:21 Resp 18 04/25/24 14:21 BP 142/79 04/25/24 14:21 Pulse Ox 94 L 04/25/24 14:21 FiO2 Intake & Output 04/24/24 04/25/24 04/25/24 18:59 06:59 18:59 Output Total 800 Balance -800 Weight 63.503 kg Output: Urine 800 Other: Voiding Method Diaper - Exam On examination, patient is an elderly female, laying in the bed, appears confused, noncooperative with examination. She keeps on saying that she wants to go home, or she wants to go potty. Her speech is however clear. Patient states the month is August and could not tell the year. She believes that she is in [place] in [facility]. Patient would not cooperate with the exam. Patient complains of pain in both shoulders. - Labs CBC & Chem 7: 04/25/24 06:03 04/25/24 06:03 Labs: Abnormal Lab Results - Last 24 Hours (Table) 04/24/24 04/25/24 04/25/24 Range/Units 21:43 06:03 06:03 MCHC 31.5 L (32.0-37.0) g/dL Anion Gap 14.20 H (4.00-12.00) mmol/L BUN/Creatinine Ratio 21.86 H (12.00-20.00) Ratio POC Glucose (mg/dL) 118 H (70-110) mg/dL Albumin 3.6 L (3.8-4.9) g/dL Albumin/Globulin Ratio 1.33 L (1.60-3.17) Ratio 04/25/24 Range/Units 11:55 MCHC (32.0-37.0) g/dL Anion Gap (4.00-12.00) mmol/L BUN/Creatinine Ratio (12.00-20.00) Ratio POC Glucose (mg/dL) 235 H (70-110) mg/dL Albumin (3.8-4.9) g/dL Albumin/Globulin Ratio (1.60-3.17) Ratio Microbiology - Last 24 Hours (Table) 04/24/24 09:20 Blood Culture - Preliminary Blood Assessment and Plan Assessment: This is a 78-year-old woman with history of Parkinson disease, dementia and it is reported of ?Lewy body per the primary team's note and she was evaluated by [facility] neurology team as an outpatient for her Parkinson's and it seems that she is having progressive worsening of her memory and Parkinson's with falls recently. She needs placement since it seems that her is unable to take care of her. Her lactic acid is elevated on presentation. Worsening of her dementia, generalized weakness and falls is due to her progressive condition of Parkinson's disease Underlying history of Parkinson disease and patient was evaluated at [facility] that is reported by the primary team's note Underlying history of dementia and is reported per of? Lewy body type Chronic history of neuropathy Diabetes mellitus History of severe radiculopathy Chronic history of psoriasis Chronic pain syndrome Plan: * CT of the head is unremarkable for any acute process * EEG revealed mild encephalopathy. As per Dr. Silva, there is suspicious rare discharges stemming left temporal > bilateral central which can increase risk for seizure. No seizure is noted during the study. Dr. Silva felt that her confusion is related to new onset seizure. He started patient on Vimpat. * TSH 2.74, vitamin B12 466, folate 9.9, ammonia level < 9. * Patient is continued on her home dose of sentiment [id number], 1 tablet tid * PT, OT and LOAN MANAGER are consulted * Will defer the rest of the medical management to primary team * Patient is pending placement * Upon discharge patient to follow-up with neurology team over [facility] in 2 to 3 weeks
[2024-04-26] MEDS ORDERED: ZINC OXIDE PASTE (Z-GUARD) 1 APPLIC TOPICAL PRN (13:53)
--- NOTE | 2024-04-26 14:06 | P.PN ---
Subjective Progress Note Date: 04/26/24 Interval History: 78-year-old one of my office patient with multiple medical problem who is known to have history of type 2 diabetes, severe radiculopathy of the spine, Parkinson disease, previous history of stroke, chronic history of neuropathy, chronic history of psoriasis, chronic pain syndrome, history of anemia with no recent bleed and significant history of memory loss with? Of Lewy body. She is seen at [facility] neurology clinic by neurologist for parkinsonism with seen fortune teller in the past as well with blood sugar doing slightly better lately without any major hypo-/hyperglycemic episode has been using continue glucose monitor and well careful with medication specially oral hypoglycemic agent. Also patient has been treated for chronic polymyalgia rheumatica and mild arthralgia and has been on smaller dose of prednisone 2.5 mg for the last few weeks seems to do slightly better with it. She presented to the emergency department by EMS today she has been extremely confused and had significant altered mental status she get out of bed could not get back in bed has fallen several times in the last few days the hospital cannot help her to get back in bed and has been extremely difficult at home same time with her altered mental status may be very difficult to manage with going on but will not fully understand if there is any new finding at this point. At the time was seen her lactic acid was elevated she seems to have an upper respiratory symptoms with mild cough and congestion her respiratory culture including influenza RSV and SARS came back negative urine is not totally clear but not very positive white blood cell was normal. She ended up going for CAT scan of the brain shows age-related atrophy with small vessel disease without any intracranial hemorrhage or process. X-ray of the chest was ordered was not done the patient seems to have more consolidation and symptoms in both lower lung field. Also had significant tachycardia with pulse running around 120 bpm very rapid tachycardia mostly with? Of A-fib. To be hospitalized on IV ant ibiotic for what seems to be bilateral pneumonia should be able to repeat her COVID test again in 24 hours this is a possibility and early stage as well with her debility and current parkinsonism with a? Of Lewy body with advanced dementia patient probably would benefit from more help eventually either an assisted living or rehab with potential long-term. 04/25/2024--patient was seen and examined today. Son at bedside. Patient still confused. Complaining of abdominal pain which is chronic. Patient is afebrile, heart rate slightly of 103, respiratory rate 18, blood pressure 138/85, satura ting 97% on room air. CBC stable. BMP unremarkable. Neurology consulted and following, recommended to continue Sinemet 04954, 1 tablet 3 times daily. Patient is pending placement. EEG showed mild encephalopathy. Chest x-ray showed mild hypoventilatory changes, with ongoing interstitial opacities, interval worsening. Currently on Rocephin and azithromycin for pneumonia. 04/26/2024--patient was seen and examined today. Patient is confused. at bedside. Sitter at bedside. Patient A and O x 1 to 2. Complains of bodyaches. Limited review of system. Has parent concern for not being able to take care off or at home, wanted to try rehab and see if patient improves, thinks that if she does not improve with the rehab then he will consider hospice. Neurology following, currently on Vimpat. TSH normal, vitamin B12 normal, folate normal. Ammonia normal. Assessment and plan: _Altered mental status: With worsening confusion secondary to parkinsonism, dementia, metabolic encephalopathy most likely from mild hypoxia and upper respiratory infection suspect viral. EEG showed mild encephalopathy. _Multiple fall with severe debility not been able to ambulate and walk will need more help her symptoms probably worsening with that current infection. _Early sign of SIRS with elevated lactic acid hypotension and tachycardiasuspect pneumonia.--chest x-ray showed hypoventilatory changes, ongoing interstitial opacities--interval worsening, continue Rocephin and azithromycin. _Advanced dementia: Combination of parkinsonism with Lewy body and Alzheimer disease has been on Namenda Risperdal and Nuplazid. _Type 2 diabetes: Has been on Amaryl Jardiance and Mounjaro we have continued glucose monitor which her blood sugar seems to be better. _Recurrent stroke: Remain on Plavix and secondary prevention being on olmesartan and Crestor. _Hypertension: Continue olmesartan 10 mg daily will titrate dose higher if needed. _Parkinson disease with worsening complication related to parkinsonism with question of Lewy body worsening dementia and mild delusion has been on Sinemet, Nuplazid, Namenda and risperidone. _Much worsening dementia: With higher possibility for Lewy body has been seeing neurology regularly medication been adjusted and has been using risperidone and Nuplazid for complication related to her dementia with delusion and biggs llucination. _Hyperlipidemia: Remain on rosuvastatin 10 mg a day. _Hypothyroidism: Continue patient on levothyroxine 50 mcg daily. _GI prophylaxis: Resume Pepcid 20 mg a day. _DVT prophylaxis: Subcutaneous Lovenox _CODE STATUS: Full code. PHYSICAL EXAMINATION: GENERAL: The patient is A&O x1-2, confused HEENT: EOMI, Sclerae anicteric, Moist Mucous membranes Neck: Supple, Non tender, No JVD PULMONARY: Equal breath souds B/L, No wheezing, No crackles. CARDIOVASCULAR: S1, S2 present. No murmurs, rubs, or gallops. ABDOMEN: Soft, nontender, nondistended, normoactive bowel sounds. No guarding or rebound tenderness. MUSCULOSKELETAL: No edema, No cyanosis. No clubbing. Normal ROM. Intact p eripheral pulses. EXTREMITIES: No cyanosis, clubbing, or pedal edema. NEUROLOGICAL: CN 2-12 grossly intact. No FND . Resting tremor. Skin: No Rash REVIEW OF SYSTEMS: Limited review of system due to confusion. Dictation was produced using [employer] dictation software. please excuse any grammatical, word or spelling errors. Objective - Vital Signs Vital signs: Vital Signs Temp 100.0 F H 04/26/24 00:34 Pulse 52 L 04/26/24 07:38 Resp 17 04/26/24 07:38 BP 143/81 04/26/24 07:38 Pulse Ox 96 04/26/24 07:38 FiO2 Intake & Output 04/25/24 04/26/24 04/26/24 18:59 06:59 18:59 Other: Voiding Method Diaper # Voids 5 - Labs CBC & Chem 7: 04/25/24 06:03 04/25/24 06:03 Labs: Abnormal Lab Results - Last 24 Hours (Table) 04/26/24 Range/Units 11:45 POC Glucose (mg/dL) 131 H (70-110) mg/dL Microbiology - Last 24 Hours (Table) 04/24/24 09:20 Blood Culture - Preliminary Blood
[2024-04-26 16:50] LABS: Glucose,Whole Blood 228 mg/dL (70-110)
[2024-04-26 21:33] LABS: Glucose,Whole Blood 123 mg/dL (70-110)
[2024-04-27 05:47] LABS: Glucose,Whole Blood 98 mg/dL (70-110)
[2024-04-27] MEDS: ACETAMINOPHEN TAB 500 MG TAB PO PRN (09:19)
[2024-04-27 11:24] LABS: Appearance,Urine Clear (Clear); Bilirubin,Urine Negative (Negative); Blood,Urine Trace (Negative); Budding Yeast,Urine Occasional /hpf; Color,Urine Yellow; Glucose,Urine (UA) 4+ (Negative); Leukocyte Esterase,Urine Trace (Negative); Nitrite,Urine Negative (Negative); PH, Urine 5.5 (5.0-8.0); Protein,Urine Trace (Negative); RBC,Urine 7 /hpf (0-5); Specific Gravity,Urine 1.031 (1.001-1.035); Squamous Epithelial Cell,Urine <1 /hpf (0-4); Urobilinogen,Urine <2.0 mg/dL (<2.0); WBC,Urine 6 /hpf (0-5)
[2024-04-27 11:39] LABS: Ketones,Urine 3+ (Negative)
[2024-04-27 11:54] LABS: Glucose,Whole Blood 129 mg/dL (70-110)
--- NOTE | 2024-04-27 12:15 | P.PN ---
Subjective Progress Note Date: 04/26/24 04/26/2024: Patient was seen for follow-up. Patient is laying in the bed. Patient's was also present by the bedside. Patient's states that she is feeling "rough". She complains of pain, very restless, agitated, wants to go home. Patient's mentioned that patient has been seen by Dr. Shiv Hernández, movement disorder specialist at [facility], who confirmed Parkinson's disease. Patient's is contemplating between her rehab versus hospice. When she wakes up, she becomes very agitated, ripped off everything. At present she is dozing off. 04/25/2024: Patient was initially seen by Dr. Constantine Silva. Please refer to his note for details. Patient is a 78-year-old female with history of Parkinson's disease, dementia, DM, Chronic back pain, who presents because of worsening confusion and parkinsonian symptoms and needs placement. EEG was performed and Dr. Silva felt that patient has discharges stemming from the left temporal region so he started the patient on Vimpat. No hx of back surgery. Patient was seen for a follow-up. Patient's was present by the bedside. Patient at present appears delirious, confused, wants to go home or sometimes she sees "I want to go potty". Patient's family mentions that on p rene went to [place] [facility], and was noted to have low blood pressure running around systolic send 67 and 87 range. An EKG was done. On , she was walking, up and around, went to bed at 10 PM. On Saturday, yesterday, at 2 AM she called her daughter and was bent over on the bed not able to move her legs. Patient's tried to move and she could not. He sat her up and at that time, she was babbling. They called EMS and patient was brought to the hospital. Patient does have history of dementia, occasionally she gets combative. Some of the workup during this hospital visit consisted of: CBC with differential is unremarkable Initial plasma lactic acid venous 2.2, glucose is 178, BUN is 24 otherwise rest of the workup is unremarkable Urinalysis is negative for any underlying infection Influenza A/B/RSV/COVID [address] head is reported as age-related atrophy and chronic small vessel ischemic change without acute intracranial process seen at this time. I Reviewed the CT and I agree there is no acute or subacute ischemia. Objective - Vital Signs Vital signs: Vital Signs Temp 100.0 F H 04/26/24 00:34 Pulse 52 L 04/26/24 07:38 Resp 17 04/26/24 07:38 BP 143/81 04/26/24 07:38 Pulse Ox 96 04/26/24 07:38 FiO2 Intake & Output 04/25/24 04/26/24 04/26/24 18:59 06:59 18:59 Other: Voiding Method Diaper # Voids 5 - Exam On examination, patient is an elderly female, laying in the bed, on her left lateral position. Patient is somnolent. When she wakes up she is very agitated, therefore I did not wake her up. Spoke to patient's and the nursing staff. - Labs CBC & Chem 7: 04/25/24 06:03 04/25/24 06:03 Labs: Abnormal Lab Results - Last 24 Hours (Table) 04/26/24 Range/Units 11:45 POC Glucose (mg/dL) 131 H (70-110) mg/dL Microbiology - Last 24 Hours (Table) 04/24/24 09:20 Blood Culture - Preliminary Blood Assessment and Plan Assessment: This is a 78-year-old woman with history of Parkinson disease, dementia and it is reported of ?Lewy body per the primary team's note and she was evaluated by [facility] neurology team as an outpatient for her Parkinson's and it seems that she is having progressive worsening of her memory and Parkinson's with falls recently. She needs placement since it seems that her is unable to take care of her. Her lactic acid is elevated on presentation. Worsening of her dementia, generalized weakness and falls is due to her progressive condition of Parkinson's disease Underlying history of Parkinson disease and patient was evaluated at [facility] that is reported by the primary team's note Underlying history of dementia and is reported per of? Lewy body type Chronic history of neuropathy Diabetes mellitus History of severe radiculopathy Chronic history of psoriasis Chronic pain syndrome Plan: * CT of the head is unremarkable for any acute process * EEG revealed mild encephalopathy. As per Dr. Silva, there is suspicious rare discharges stemming left temporal > bilateral central which can increase risk for seizure. No seizure is noted during the study. Dr. Silva felt that her confusion is related to new onset seizure. He started patient on Vimpat. * TSH 2.74, vitamin B12 466, folate 9.9, ammonia level < 9. * Patient is continued on her home dose of sentiment [id number], 1 tablet tid * PT, OT and PROPELLER TESTER are consulted * Will defer the rest of the medical management to primary team * Patient is pending placement * Upon discharge patient to follow-up with neurology team over [facility] in 2 to 3 weeks * Patient's is contemplating between rehab versus hospice. * Neurologically no other workup indicated. May consider pain management and/or psychiatry consult.
[2024-04-27 17:08] LABS: Glucose,Whole Blood 111 mg/dL (70-110)
[2024-04-27 21:24] LABS: Glucose,Whole Blood 110 mg/dL (70-110)
--- NOTE | 2024-04-28 00:14 | P.PN ---
Subjective Progress Note Date: 04/27/24 HISTORY OF PRESENT ILLNESS: 78-year-old one of my office patient with multiple medical problem who is known to have history of type 2 diabetes, severe radiculopathy of the spine, Parkinson disease, previous history of stroke, chronic history of neuropathy, chronic history of psoriasis, chronic pain syndrome, history of anemia with no recent bleed and significant history of memory loss with? Of Lewy body. She is seen at [facility] neurology clinic by neurologist for parkinsonism with seen environmental planner in the past as well with blood sugar doing slightly better lately without any major hypo-/hyperglycemic episode has been using continue glucose monitor and well careful with medication specially oral hypoglycemic agent. Also patient has been treated for chronic polymyalgia rheumatica and mild arthralgia and has been on smaller dose of prednisone 2.5 mg for the last few weeks seems to do slightly better with it. She presented to the emergency department by EMS today she has been extremely confused and had significant altered mental status she get out of bed could not get back in bed has fallen several times in the last few days the hospital cannot help her to get back in bed and has been extremely difficult at home same time with her altered mental status may be very difficult to manage with going on but will not fully understand if there is any new finding at this point. At the time was seen her lactic acid was elevated she seems to have an upper respiratory symptoms with mild cough and congestion her respiratory culture including influenza RSV and SARS came back negative urine is not totally clear but not very positive white blood cell was normal. She ended up going for CAT scan of the brain shows age-related atrophy with small vessel disease without any intracranial hemorrhage or process. X-ray of the chest was ordered was not done the patient seems to have more consolidation and symptoms in both lower lung field. Also had significant tachycardia with pulse running around 120 bpm very rapid tachycardia mostly with? Of A-fib. To be hospitalized on IV antibiotic for what seems to be bilateral pneumonia should be able to repeat her COVID test again in 24 hours this is a possibility and early stage as well with her debility and current parkinsonism with a? Of Lewy body with advanced dementia patient probably would benefit from more help eventually either an assisted living or rehab with potential long-term. 04/27/2024: She is not doing well. Her level of consciousness and following command is a lot limited and lower than before her worsening dementia with current behavioral change quite bit. Neurologist is seeing patient with their conclusion this is worsening dementia generalized weakness as a progressive Parkinson disease would be? Whether this is Lewy body type of dementia or not apparently family today came with the conclusion might consider to do hospice and palliative care originally was a plan for placement but currently the change for possibility of hospice. REVIEW OF SYSTEMS: CONSTITUTIONAL: Well-developed quite bit confused and congested not in any respiratory distress. Head and neck: Slightly congestion with low-grade lymph node in the neck area with mild congestion. EARS, NOSE, MOUTH, THROAT, and FACE: Mild pharyngitis with smaller lymph adenopathy. RESPIRATORY: Positive shortness of breath cough or wheezes. CARDIOVASCULAR: Positive PND orthopnea palpitation. GASTROINTESTINAL: Significant nausea no vomiting positive diarrhea. GENITOURINARY: Positive incontinence no hematuria or kidney stone. INTEGUMENT/BREAST: Negative for any muscular injury with mild osteoarthritis.. HEMATOLOGIC/LYMPHATIC: Negative for bleed or purpura. MUSCULOSKELTAL: Generalized arthralgia and myalgia. NEURLOGICAL: Combination of dementia and advanced parkinsonism. BEHAVIORAL/PSYCH: Negative. ENDOCRINE: Negative. PHYSICAL EXAMINATION: General Appearance: Alert, quite bit confused in no respiratory distress. Neck HEENT: Slight hyperemic throat with lymphadenopathy no thyroid enlargement. Lungs: Decreased breath sound bilaterally especially in the bases positive for rhonchi and crackles pause mild expiratory wheezes. Chest Wall: Decreased expansion with deep inspiration no tenderness and no deformity was found on exam, no costochondral pain or discomfort. Heart: Regular rate and rhythm, S1, S2 significant tachycardia with systolic murmur. Back: Symmetric, no curvature, ROM normal, no CVA tenderness. Abdomen: Soft, non-tender, bowel sounds active all four quadrants, no masses, no organomegaly. Extremities: Extremities normal, atraumatic, no cyanosis or edema. Pulses: 2+ and symmetric. Skin: Skin color, texture, tugor normal, no rashes or lesions. Neurologic: Quite confused alert cranial nerves II through XII are intact positive generalized weakness and fatigue bilaterally positive resting tremor with significant parkinsonism ASSESSMENT AND PLAN: _Altered mental status: With worsening dementia which is Alzheimer disease with Parkinson's dementia versus Lewy body much worsening condition overall patient has not been eating or drinking following oral IV and any attachment of her body with much worsening mental status and physical activity. _Multiple fall with severe debility not been able to ambulate and walk will need more help her symptoms probably worsening with that current infection. _Advanced dementia: Combination of parkinsonism with Lewy body and Alzheimer disease has been on Namenda Risperdal and Nuplazid. Sadly patient is not taking much medication. _Type 2 diabetes: Has been on Amaryl Jardiance and Mounjaro we have continued glucose monitor which her blood sugar seems to be better. With her intake orally is very low her blood sugar is much better. _Recurrent stroke: Remain on Plavix and secondary prevention being on olmesartan and Crestor. _Hypertension: Continue olmesartan 10 mg daily will titrate dose higher if needed. _Parkinson disease with worsening complication related to parkinsonism with question of Lewy body worsening dementia and mild delusion has been on Sinemet, Nuplazid, Namenda and risperidone. _Much worsening dementia: With higher possibility for Lewy body has been seeing neurology regularly medication been adjusted and has been using risperidone and Nuplazid for complication related to her dementia with delusion and hallucination. _Hyperlipidemia: Remain on rosuvastatin 10 mg a day. _Hypothyroidism: Continue patient on levothyroxine 50 mcg daily. Discussion: Much worsening condition family and think about possibility of hospice care at this point. Objective - Vital Signs Vital signs: Vital Signs Temp 100 F H 04/27/24 02:00 Pulse 91 04/27/24 02:00 Resp 16 04/26/24 21:45 BP 111/90 04/27/24 03:45 Pulse Ox 89 L 04/27/24 02:00 FiO2 Intake & Output 04/26/24 04/27/24 04/27/24 18:59 06:59 18:59 Other: Voiding Method Diaper # Voids 4 3 # Bowel Movements 2 1 - Labs CBC & Chem 7: 04/25/24 06:03 04/25/24 06:03 Labs: Abnormal Lab Results - Last 24 Hours (Table) 04/26/24 04/26/24 04/26/24 Range/Units 11:45 16:49 21:31 POC Glucose (mg/dL) 131 H 228 H 123 H (70-110) mg/dL Microbiology - Last 24 Hours (Table) 04/24/24 09:20 Blood Culture - Preliminary Blood
[2024-04-28] MEDS: Tirzepatide [Mounjaro] 7.5 MG/0.5 ML Pen.Injctr SQ SCH (05:25)
[2024-04-28 05:48] LABS: Glucose,Whole Blood 72 mg/dL (70-110)
[2024-04-28 08:04] LABS: Glucose,Whole Blood 100 mg/dL (70-110)
[2024-04-28 09:01] VITALS: BP 128/77; PULSE 98; RESP 16; TEMP 98.3
[2024-04-28 11:43] LABS: Glucose,Whole Blood 101 mg/dL (70-110)
--- NOTE | 2024-04-28 13:20 | P.DS ---
Providers Date of admission: 04/24/24 06:14 Attending physician: Byron Banuelos Consults: 04/24/24 07:53 Consult Physician Routine Consulting Provider: Constantine Silva Consult Reason/Comments: [place] Dementia and Parkinsonism Do you want consulting provider notified?: Yes Primary care physician: Byron Banuelos [facility] Course: HISTORY OF PRESENT ILLNESS: 78-year-old one of my office patient with multiple medical problem who is known to have history of type 2 diabetes, severe radiculopathy of the spine, Parkinson disease, previous history of stroke, chronic history of neuropathy, chronic history of psoriasis, chronic pain syndrome, history of anemia with no recent bleed and significant history of memory loss with? Of Lewy body. She is seen at [facility] neurology clinic by neurologist for parkinsonism with seen visiting professor in the past as well with blood sugar doing slightly better lately without any major hypo-/hyperglycemic episode has been using continue glucose monitor and well careful with medication specially oral hypoglycemic agent. Also patient has been treated for chronic polymyalgia rheumatica and mild arthralgia and has been on smaller dose of prednisone 2.5 mg for the last few weeks seems to do slightly better with it. She presented to the emergency department by EMS today she has been extremely confused and had significant altered mental status she get out of bed could not get back in bed has fallen several times in the last few days the hospital cannot help her to get back in bed and has been extremely difficult at home same time with her altered mental status may be very difficult to manage with going on but will not fully understand if there is any new finding at this point. At the time was seen her lactic acid was elevated she seems to have an upper respiratory symptoms with mild cough and congestion her respiratory culture including influenza RSV and SARS came back negative urine is not totally clear but not very positive white blood cell was normal. She ended up going for CAT scan of the brain shows age-related atrophy with small vessel disease without any intracranial hemorrhage or process. X-ray of the chest was ordered was not done the patient seems to have more consolidation and symptoms in both lower lung field. Also had significant tachycardia with pulse running around 120 bpm very rapid tachycardia mostly with? Of A-fib. To be hospitalized on IV antibiotic for what seems to be bilateral pneumonia should be able to repeat her COVID test again in 24 hours this is a possibility and early stage as well with her debility and current parkinsonism with a? Of Lewy body with advanced dementia patient probably would benefit from more help eventually either an assisted living or rehab with potential long-term. 04/27/2024: She is not doing well. Her level of consciousness and following command is a lot limited and lower than before her worsening dementia with current behavioral change quite bit. Neurologist is seeing patient with their conclusion this is worsening dementia generalized weakness as a progressive Parkinson disease would be? Whether this is Lewy body type of dementia or not apparently family today came with the conclusion might consider to do hospice and palliative care originally was a plan for placement but currently the change for possibility of hospice. 04/28/2024: Patient is getting quite bit worse her level of response and conscious is a lot worse her dementia and memory decline significantly. She was evaluated by neurology and their conclusion this is worsening dementia generalized weakness and fall due to progressive condition of Parkinson disease with her current dementia and Parkinson this is most likely Lewy body type of dementia which is a lot more progressive than expected. I have long discussion with the today who is willing to transfer patient to hospice facility and to notify the family, life expectancy is limited at this point specially with patient's level of consciousness respond and interaction is extremely limited her nourishment and oral intake for food and fluids still limited. He change her CODE STATUS today to DO NOT RESUSCITATE and later on today if agreed by [facility] patient be transferred to the hospice house. REVIEW OF SYSTEMS: CONSTITUTIONAL: Well-developed quite bit confused and congested not in any respiratory distress. Head and neck: Slightly congestion with low-grade lymph node in the neck area with mild congestion. EARS, NOSE, MOUTH, THROAT, and FACE: Mild pharyngitis with smaller lymph adenopathy. RESPIRATORY: Positive shortness of breath cough or wheezes. CARDIOVASCULAR: Positive PND orthopnea palpitation. GASTROINTESTINAL: Significant nausea no vomiting positive diarrhea. GENITOURINARY: Positive incontinence no hematuria or kidney stone. INTEGUMENT/BREAST: Negative for any muscular injury with mild osteoarthritis.. HEMATOLOGIC/LYMPHATIC: Negative for bleed or purpura. MUSCULOSKELTAL: Generalized arthralgia and myalgia. NEURLOGICAL: Combination of dementia and advanced parkinsonism. BEHAVIORAL/PSYCH: Negative. ENDOCRINE: Negative. PHYSICAL EXAMINATION: General Appearance: Alert, quite bit confused in no respiratory distress. Neck HEENT: Slight hyperemic throat with lymphadenopathy no thyroid enlargement. Lungs: Decreased breath sound bilaterally especially in the bases positive for rhonchi and crackles pause mild expiratory wheezes. Chest Wall: Decreased expansion with deep inspiration no tenderness and no deformity was found on exam, no costochondral pain or discomfort. Heart: Regular rate and rhythm, S1, S2 significant tachycardia with systolic murmur. Back: Symmetric, no curvature, ROM normal, no CVA tenderness. Abdomen: Soft, non-tender, bowel sounds active all four quadrants, no masses, no organomegaly. Extremities: Extremities normal, atraumatic, no cyanosis or edema. Pulses: 2+ and symmetric. Skin: Skin color, texture, tugor normal, no rashes or lesions. Neurologic: Quite confused alert cranial nerves II through XII are intact positive generalized weakness and fatigue bilaterally positive resting tremor with significant parkinsonism ASSESSMENT AND PLAN: _Altered mental status: With worsening dementia which is Alzheimer disease with Parkinson's dementia versus Lewy body much worsening condition overall patient has not been eating or drinking following oral IV and any attachment of her body with much worsening mental status and physical activity. _Lewy body dementia: With much worsening parkinsonism and decline in memory which most likely Lewy body at this point. _Multiple fall with severe debility not been able to ambulate and walk will need more help her symptoms probably worsening with that current infection. _Advanced dementia: Combination of parkinsonism with Lewy body and Alzheimer disease has been on Namenda Risperdal and Nuplazid. Sadly patient is not taking much medication. _Type 2 diabetes: Has been on Amaryl Jardiance and Mounjaro we have continued glucose monitor which her blood sugar seems to be better. With her intake orally is very low her blood sugar is much better. _Recurrent stroke: Remain on Plavix and secondary prevention being on olmesartan and Crestor. _Hypertension: Continue olmesartan 10 mg daily will titrate dose higher if needed. _Parkinson disease with worsening complication related to parkinsonism with question of Lewy body worsening dementia and mild delusion has been on Sinemet, Nuplazid, Namenda and risperidone. _Much worsening dementia: With higher possibility for Lewy body has been seeing neurology regularly medication been adjusted and has been using risperidone and Nuplazid for complication related to her dementia with delusion and hallucination. _Hyperlipidemia: Remain on rosuvastatin 10 mg a day. _Hypothyroidism: Continue patient on levothyroxine 50 mcg daily. Discussion: Again this is most likely Lewy body dementia which is worsening dementia and parkinsonism making this is a lot worse than severely more progressive. Hospital course: The patient brought to the emergency department on 04/24/2024 by EMS she has been extremely confused had significant altered mental status she get out of bed could not get back in bed and had fallen several times in last few days. To her hospitalization could not get her back in bed at the time and has been difficult dealing with patient last 24 hours. At the time was seen in the emergency department lactic acid was normal she seems to have an upper respiratory symptoms with mild cough and congestion respiratory culture for RSV SARS and influenza was totally negative, CAT scan of the brain showed age- related atrophy with small vessel disease without any intracranial hemorrhage or process, chest x-ray showed no consolidation, EKG showed sinus tachycardia with pulse rate 120 bpm with question whether it is A-fib which again repeat EKG did not show any A-fib at the time. Patient started on IV antibiotic for what seems like bilateral pneumonia clinically and COVID to be repeated again in 24 hours. Her debility with recurrent circumstance especially with the worsening dementia can be a bit? As a Lewy body dementia itself. Patient was evaluated by neurology and agreeable with the current diagnosis and management her assessment with current testing including EEG did not show any seizure activity at the time will be nice to be able to get an MRI of the brain but with patient being restless most of the time that was not an easy process. Family on 916 start thinking toward comfort care and hospice I met with them on 04/28/2024 to conclusion try to transfer patient to the hospice house and continue comfort care. She is more acting like Lewy body dementia than plain Alzheimer disease with worsening parkinsonism. Time spent on discharging patient was over 35 minutes. Patient Condition at Discharge: Fair Plan - Discharge Summary Discharge Rx Participant: No New Discharge Prescriptions: Continue Clopidogrel [Plavix] 75 mg PO QAM Furosemide [Lasix] 20 mg PO Q2D Levothyroxine Sodium [Synthroid] 50 mcg PO HS Famotidine 20 mg PO HS Rosuvastatin [Crestor] 10 mg PO QAM predniSONE 2.5 mg PO W/BRKFST Olmesartan Medoxomil 10 mg PO DAILY Carbidopa-Levodopa 25-100 mg [Sinemet 25-100 mg] 1 tab PO TID-W/MEALS Cyclobenzaprine [Flexeril] 10 mg PO BID PRN PRN Reason: Muscle Spasm Glimepiride [Amaryl] 2 mg PO AC-BID@0700,1200 PRN PRN Reason: Blood Sugar - High Empagliflozin [Jardiance] 25 mg PO DAILY Magnesium Oxide [Mag-Ox] 400 mg PO W/SUPPER Memantine [Namenda] 5 mg PO BID Mexiletine [Mexitil] 150 mg PO BID Pimavanserin Tartrate [Nuplazid] 34 mg PO HS risperiDONE [RisperDAL] 1 mg PO HS risperiDONE [RisperDAL] 0.5 mg PO QAM Tirzepatide [Mounjaro] 7.5 mg SQ TU Discharge Medication List Clopidogrel [Plavix] 75 mg PO QAM 08/23/14 [History] Furosemide [Lasix] 20 mg PO Q2D 08/23/14 [History] Levothyroxine Sodium [Synthroid] 50 mcg PO HS 09/08/14 [History] Famotidine 20 mg PO HS 09/28/14 [History] Rosuvastatin [Crestor] 10 mg PO QAM 10/15/20 [History] predniSONE 2.5 mg PO W/BRKFST 10/15/20 [History] Empagliflozin [Jardiance] 25 mg PO DAILY 02/13/22 [History] Olmesartan Medoxomil 10 mg PO DAILY 02/13/22 [History] Carbidopa-Levodopa 25-100 mg [Sinemet 25-100 mg] 1 tab PO TID-W/MEALS 04/24/24 [History] Cyclobenzaprine [Flexeril] 10 mg PO BID PRN 04/24/24 [History] Glimepiride [Amaryl] 2 mg PO AC-BID@0700,1200 PRN 04/24/24 [History] Magnesium Oxide [Mag-Ox] 400 mg PO W/SUPPER 04/24/24 [History] Memantine [Namenda] 5 mg PO BID 04/24/24 [History] Mexiletine [Mexitil] 150 mg PO BID 04/24/24 [History] Pimavanserin Tartrate [Nuplazid] 34 mg PO HS 04/24/24 [History] Tirzepatide [Mounjaro] 7.5 mg SQ TU 04/24/24 [History] risperiDONE [RisperDAL] 0.5 mg PO QAM 04/24/24 [History] risperiDONE [RisperDAL] 1 mg PO HS 04/24/24 [History] Follow up Appointment(s)/Referral(s): Byron Banuelos MD [Primary Care Provider] - 1-2 days Discharge Disposition: DISCH TO [facility]
== END 2024-04-28 15:09 | disposition hospice, inpatient (51) | DRG 56 ==
LOC: EC 03:30 → 4SSUR 06:14
PROVIDERS: ADMIT Internal Medicine Geriatric Medicine; ATTEND Internal Medicine Geriatric Medicine
DX: G31.83 Neurocognitive disorder with Lewy bodies (principal); G93.41 Metabolic encephalopathy; J18.9 Pneumonia, unspecified organism; F02.C11 Dementia in other diseases classified elsewhere, severe, with agitation; F02.C4 Dementia in other diseases classified elsewhere, severe, with anxiety; E86.0 Dehydration; R56.9 Unspecified convulsions; R09.02 Hypoxemia; G20.C Parkinsonism, unspecified; M35.3 Polymyalgia rheumatica; E03.9 Hypothyroidism, unspecified; I48.91 Unspecified atrial fibrillation; I10 Essential (primary) hypertension; G89.4 Chronic pain syndrome; L40.9 Psoriasis, unspecified; R29.6 Repeated falls; G30.9 Alzheimer's disease, unspecified; Z66 Do not resuscitate; M25.50 Pain in unspecified joint; E78.5 Hyperlipidemia, unspecified; E11.40 Type 2 diabetes mellitus with diabetic neuropathy, unspecified; M54.10 Radiculopathy, site unspecified; Z51.5 Encounter for palliative care; Z88.8 Allergy status to other drugs, medicaments and biological substances; Z79.02 Long term (current) use of antithrombotics/antiplatelets; Z88.0 Allergy status to penicillin; Z88.5 Allergy status to narcotic agent; Z88.2 Allergy status to sulfonamides; Z86.73 Personal history of transient ischemic attack (TIA), and cerebral infarction without residual deficits; Z79.899 Other long term (current) drug therapy; Z79.890 Hormone replacement therapy; Z79.84 Long term (current) use of oral hypoglycemic drugs; Z79.1 Long term (current) use of non-steroidal anti-inflammatories (NSAID)
CPT/HCPCS: 36415; 70450; 71046; 80053; 81001; 82140; 82607; 82746; 83605; 83735; 84145; 84443; 84484; 85025; 85027; 87040; 87636; 93005; 95816; 96361; 96365; 96366; 96368; 96372; 99285